=== PATIENT | female | born 1975 | race African-American/Black ===

== ENCOUNTER 2019-06-21 09:52 | Inpatient (IN) | payer OTHER, SELFPAY ==
--- NOTE | ~2019-06-21 | US_ITS ---
CORRECTED REPORT ORDER # ADDED 06/22/19 PK EXAMINATION: US percutaneous drain w cath DATE: 06/21/2019 15:56 INDICATION: Post hysterectomy abscess drainage with pain and loculated fluid collections along the incision site of prior outside CT. TECHNIQUE: The procedure including the risks and benefits was discussed with the patient. Risks discussed included bleeding and allergic reaction and infection. The patient understood the risks and benefits and agreed to proceed. The patient was confirmed to be receiving appropriate antibiotic coverage. The skin overlying the anterior lower pelvis was prepped and draped in usual sterile fashion. Anesthetic was administered with 1% lidocaine subcutaneously. Utilizing ultrasound guidance and 8.5 Fr catheter was inserted into at least 5 x 2.2 cm complex hypoechoic fluid collection in the subcutaneous tissues along the caudal margin of the left side of the section wound by trocar technique. The metal stiffener and trocar needle were removed, and the pigtail tip was locked. Approximately 4 mL dark reddish fluid was aspirated and sent to lab for Gram stain and culture. Utilizing ultrasound guidance and 8.5 Fr catheter was inserted into a second deeper 4.8 x 2.3 x 2.4 cm complex hypoechoic fluid collection in the in the anterior abdominal wall musculature more medial and slightly cephalad to the section wound by trocar technique. The metal stiffener and trocar needle were removed, and the pigtail tip was locked. Both catheters were stitched to the skin with suture. Antibiotic ointment and sterile dressings applied. Approximately 5 mL of slightly more serosanguineous sales audit clerk reddish fluid was aspirated and sent to lab for Gram stain and culture. Both catheters were connected to suction drainage. Attention was then turned to a third smaller 4.0 x 1.5 cm more complex appearing subcutaneous fluid collection significantly more internal echogenicity located caudal to the right side of the section wound. The site was prepped and draped in usual sterile fashion. Anesthetic was administered with 1% lidocaine subcutaneously. Utilizing ultrasound guidance an 18-gauge needle was advanced into the most hypoechoic portions of the fluid collection. Only a small amount of dark reddish fluid was able to be drained with the majority of the pocket filled with still relatively solid presumed clot and further drain catheter placement was deferred. A bandage was applied. There were no immediate complications. FINDINGS: Some images demonstrate 3 complex loculated fluid collections along the section wound. Subsequent images demonstrate drainage catheters positioned within 2 of the larger and more hypoechoic fluid collections as detailed above and aspiration needle within the third smaller more echogenic collection. Samples of bloody reddish fluid was aspirated from each collection for testing. IMPRESSION: 1. Successful ultrasound-guided drainage of 2 of 3 fluid collections and aspiration of the third fluid collection along the lower abdominal wall section wound most likely representing postoperative hematomas. Superimposed infection cannot be excluded and recommend correlation with pending Gram stain and cultures. 2. The catheter will be managed by Dr. Jansen. Reviewed, dictated and finalized at location A. ENT DRIVING INSTRUCTOR MTDD IMPRESSION: 1. Successful ultrasound-guided drainage of 2 of 3 fluid collections and aspira tion of the third fluid collection along the lower abdominal wall sect ion wound most likely representing postoperative hematomas. Superimposed infect ion cannot be excluded and recommend correlation with pending Gram stain and cu ltures. 2. The catheter will be managed by
--- NOTE | 2019-06-21 10:15 | ADMGEN ---
This patient, Dior Gordon, was admitted to 3 Medical Room 348-. Patient/family oriented to hospital policies and general routines including ID bracelet, bed and alarms, visiting hours, pain management, procedures, bathroom and other care routines, personal items, smoking policy, room service/diet, and visiting hours. Valuables list has been completed. Information on how to activate the Rapid Response Team has been discussed. Patient/Family are encouraged to report perceived risks to care and to ask questions if they do not understand what they are told or what they should do.
[2019-06-21 11:01] LABS: Mean Platelet Volume 9.5 fl (7.4-10.4); Platelet Count Result 485 k/mm3 (150-375)
[2019-06-21 11:07] LABS: INR 1.1; Prothrombin Time 13.7 Seconds (11.1-14.7)
[2019-06-21 11:08] LABS: Partial Thromboplastin Time 31.7 SECONDS (22.3-36.8)
[2019-06-21 11:42] VITALS: BMI 36.0
[2019-06-21] MEDS: levoFLOXacin 500 MG/D5W 100 ML 500 MG/100 ML BAG 100 MG IVPB (12:30)
[2019-06-21] MEDS: ESTRADIOL 7 DAY 0.1 MG PATCH TRANSDERM (13:32)
[2019-06-21 17:35] VITALS: BP 136/56; PULSE 78; RESP 16; TEMP 36.9; O2SAT 99
--- NOTE | 2019-06-21 17:46 | WPDCN ---
Assessment and Plan Assessment and plan (1) Type 2 diabetes mellitus: Code(s): E11.9 - Type 2 diabetes mellitus without complications Status: Acute Assessment and Plan: Recent hemoglobin A1c was 11.0. Patient reports that her glucose has not been over 200 since her recent surgery, and has not been using her insulin at home, only oral hypoglycemics. She does not wish to go back on insulin at this time. We did discuss that she needs to have good control of her glucose to promote wound healing. Initiate sliding scale insulin, Accu-Cheks, and hypoglycemic protocol. (2) Pelvic abscess: Status: Acute Assessment and Plan: Abscess status post hysterectomy. She has been started on levofloxacin and metronidazole per Dr. Jansen. Interventional Radiology has since placed a drain. (3) HTN (hypertension): Code(s): I10 - Essential (primary) hypertension Status: Chronic Assessment and Plan: Blood pressures are reasonable postoperatively. Continue antihypertensives and monitor daily. HPI Data of Consult Date/Time: 06/21/19 17:46 Requesting Physician: Darren Jansen MD Primary Care Provider: Brad Ortega MD Consult Narrative Narrative: Dior Gordon is a 43 year old female with type 2 diabetes mellitus, hypertension, and hyperlipidemia whom the hospitalist service has been consulted on for management of her diabetes. She is status post total abdominal hysterectomy with bilateral salpingo-oophorectomy for menorrhagia, fibroids, and ovarian cyst per Dr. Jansen on June 07, 2019. She was discharged home 3 days thereafter, and notes that she has continued to have pain at the incision site since. The pain is described as heavy and sticking in nature and seems to be located about the incision site. This morning, she was awakened from sleep with significant bleeding from an area of reported wound dehiscence and she was seen in the emergency department at [facility] in [place]. CT of the abdomen and pelvis reportedly showed 3 different abscesses, and she was transferred here for continuity of care. She is status post drain placement per interventional radiology. Currently she is eating dinner and continues to have some discomfort at the incision site. She had chills and sweats this morning, but no documented fever. She also had nausea and vomiting this morning, but that has since resolved. Regarding her diabetes, most recent hemoglobin A1c was 11.0. Prior to her surgery, she was taking Basaglar 45 units b.i.d. Since her surgery, however, her glucose has not been over 200 and she has stopped taking her insulin, and is only taking oral hypoglycemics. She has even had some low readings, as low as 75, which caused her mild hypoglycemic symptoms. She has not had blurry vision, polydipsia, or polyuria. Review of Systems Review of Systems: Narrative: Twelve systems were reviewed with pertinent positives and negatives as per HPI. No headache. No recent cold or flu-like symptoms. No chest pain or shortness of breath. She had a normal bowel movement today. No dysuria. No history of sleep apnea, but she suspects she may have it as she will occasionally have PND or feel not well rested when waking. He goes on to say that the symptoms have improved since her surgery, however. Except as documented, all other systems were reviewed and are negative. PMFSH Past Medical History Medical History (Updated 06/21/19 @ 23:51 by Melani Cortes PA-C) Anxiety Arthritis Chronic GERD Fibroids HTN (hypertension) Hypercholesterolemia Obesity Type 2 diabetes mellitus Surgi
[2019-06-21] MEDS: metroNIDAZOLE 500 MG/ISO 100ML 500 MG/100 ML BAG 100 MG IVPB (18:15)
[2019-06-21 22:00] VITALS: BP 153/73; PULSE 81; RESP 14; TEMP 36.4; O2SAT 100
[2019-06-21] MEDS: metFORMIN HCL 500 MG TABLET 1000 MG PO (23:06)
[2019-06-21 23:18] LABS: Glucose Point of Care 161 (65-105)
[2019-06-22] MEDS: ACETAMINOPHEN 325 MG TABLET 650 MG PO ×3 (00:06→21:31)
[2019-06-22] MEDS: metroNIDAZOLE 500 MG/ISO 100ML 500 MG/100 ML BAG 100 MG IVPB ×2 (05:37→18:01)
[2019-06-22] MEDS: glipiZIDE 5 MG TABLET 10 MG PO (05:38)
[2019-06-22 06:00] VITALS: BP 134/69; PULSE 74; RESP 14; TEMP 36.3; O2SAT 100
[2019-06-22 06:48] LABS: Basophils Percent Auto 0.3 % (0.2-1.2); Eosinophils Absolute Auto 0.1 K/mm3 (0-0.3); Eosinophils Percent Auto 1.5 % (0-4.4); Hematocrit 26.9 % (37.0-47.0); Immature Granulocyte Absolute 0.02 K/mm3 (0.00-0.031); Immature Granulocyte Percent A 0.3 % (0-0.5); Lymphocytes Absolute Auto 1.73 K/mm3 (0.9-3.2); Lymphocytes Percent Auto 25.6 % (18.3-44.2); Mean Corpuscular HGB Conc 29.7 g/dl (32-36); Mean Corpuscular Hemoglobin 25.7 pg (26-34); Mean Corpuscular Volume 86.5 fl (80-100); Mean Platelet Volume 9.6 fl (7.4-10.4); Monocytes Absolute Auto 0.6 K/mm3 (0.1-0.6); Monocytes Percent Auto 8.6 % (2.6-8.5); Neutrophils Absolute Auto 4.3 K/mm3 (1.3-6.7); Neutrophils Percent Auto 63.7 % (45.5-73.1); Nucleated Red Blood Cells Perc 0.3 % (0.0-0.2); Platelet Count Result 471 k/mm3 (150-375); Red Blood Count 3.11 M/mm3 (4.2-5.4); Red Cell Distribution Width 15.2 % (11.5-14.5); White Blood Count 6.8 K/mm3 (4.5-10.0)
[2019-06-22 07:02] LABS: Blood Urea Nitrogen 11 mg/dL (7-17); Calcium 9.2 mg/dL (8.4-10.2); Carbon Dioxide 28 mmol/L (22-30); Chloride 103 mmol/L (98-107); Estimated CRCL calculation 92 ml/min; Estimated Glomerular Filt Rate > 60; Glucose 201 mg/dL (65-105); Potassium 4.2 mmol/L (3.4-5.0); Sodium 140 mmol/L (137-145)
[2019-06-22 07:11] LABS: Anisocytosis 1+ (NORMAL); Hypochromasia 1+ (NORMAL); Platelet Estimate Adequate (Adequate)
--- NOTE | 2019-06-22 08:17 | PM.IMHP ---
H&P: HPI History of Present Illness Chief complaint: Post op abscess Narrative: Dior Gordon is a 43 year old female who presents for who abdominal pain and tenderness around incision sites. The patient has had persistent abdominal pain since the surgery. She is 2 weeks postop from a open hysterectomy. Her skin incision, she states is closed well. There are hard areas around the incision site that are very tender. She has not been feeling well. She has some malaise, elevated body temperature. She denies any abnormal vaginal discharge. She denies any nausea, vomiting, fever, chills. She denies any chest pain or shortness of breath. Review of Systems Constitutional: Constitutional: Reports no additional constitutional complaints, Denies fatigue, Denies headache(s), Denies lethargy and Denies weakness Eyes: Eyes: Reports no additional eye complaints, Denies blurry vision and Denies photophobia ENT: Reports as per HPI, Denies headache(s) and Denies neck pain Cardiovascular: Cardiovascular: Denies chest pain, Denies diaphoresis, Denies leg edema, Denies palpitations and Denies dyspnea Respiratory: Respiratory: Denies hemoptysis, Denies dyspnea and Denies wheezing Gastrointestinal: Gastrointestinal: Denies abdominal pain, Denies melena, Denies bloating, Denies hematochezia, Denies nausea and Denies vomiting Genitourinary: Genitourinary: Reports no additional female genitourinary complaints Musculoskeletal: Musculoskeletal: Denies joint swelling, Denies neck pain, Denies numbness and Denies stiffness Neurologic: Denies Abnormal speech present, Denies confusion, Denies headache(s), Denies numbness and Denies weakness Psychiatric: Psychiatric: Denies anxiety, Denies confusion, Denies depression, Denies homicidal ideation and Denies suicidal ideation Endocrine: Endocrine: Denies fatigue and Denies palpitations Allergic/Immunologic: Allergic/Immunologic: Denies wheezing PMFSH Past Medical History Medical History (Updated 06/22/19 @ 08:23 by Darren Jansen MD) Anxiety Arthritis Chronic GERD Fibroids HTN (hypertension) Hypercholesterolemia Obesity Type 2 diabetes mellitus Surgical History Surgical History (Updated 06/21/19 @ 17:50 by Melani Cortes PA-C) S/P total abdominal hysterectomy and bilateral salpingo-oophorectomy Family History Family History Father Malignant neoplasm of prostate Hypertension Mother Diabetes mellitus Hypertension Sibling Hypertension Social History Social History (Updated 06/21/19 @ 23:47 by Melani Cortes PA-C) Social History: The patient lives alone in [place]. She works at a local [employer]. She has no children. Her primary care provider is Dr. Brad Ortega. She designates her sister Jessee as her emergency contact. She is a full code. Smoking status: Never smoker Alcohol intake: never Substance use: never Gender identity (if verbalized by the patient): Female Spiritual care concerns: No Agree to blood products: Yes Meds Home Medications and Allergies Home Medications Medication Instructions Recorded Confirmed Type alogliptin 25 mg PO DAILY 06/01/19 06/21/19 History atorvastatin 10 mg PO DAILY 06/01/19 06/21/19 History escitalopram oxalate 10 mg PO DAILY 06/01/19 06/21/19 History fenofibrate 54 mg PO DAILY 06/01/19 06/21/19 History glipizide 10 mg PO DAILY 06/01/19 06/21/19 History lisinopril 50 mg PO DAILY 06/01/19 06/21/19 History metformin 1,000 mg PO BID 06/01/19 06/21/19 History metoprolol succinate 25 mg PO DAILY 06/01/19 06/21/19 History ondansetron 8 mg PO Q8H PRN #10 tablet 06/11/19 06/21/19 Rx ferrous sulfate 325 mg PO BID 06/21/19 06/21/19 History ibuprofen 800 mg PO Q6H 06/21/19 06/21/19 History Allergies Allergy/AdvReac Type Severity Reaction Status Date / Time latex Allergy Unknown Rash Verified 06/07/19 08:02 Vital Signs Vital Signs - 24 hr 1
[2019-06-22 08:19] LABS: Hemoglobin A1C 10.6 % (<5.7)
[2019-06-22 09:15] VITALS: PULSE 74; RESP 14; O2SAT 100
[2019-06-22] MEDS: FERROUS SULFATE 324 MG TABLET PO ×2 (09:16→18:05)
[2019-06-22] MEDS: LISINOPRIL 10 MG TABLET 50 MG PO (09:16)
[2019-06-22] MEDS: metFORMIN HCL 500 MG TABLET 1000 MG PO ×2 (09:17→21:32)
[2019-06-22] MEDS: ATORVASTATIN 10 MG TABLET PO (09:17)
[2019-06-22 09:18] VITALS: PULSE 74
[2019-06-22] MEDS: ESCITALOPRAM OXALATE 10 MG TABLET PO (09:18)
[2019-06-22] MEDS: METOPROLOL SUCCINATE EXT REL 25 MG TABCR PO (09:18)
[2019-06-22 09:36] LABS: Glucose Point of Care 205 (65-105)
[2019-06-22] MEDS: levoFLOXacin 500 MG/D5W 100 ML 500 MG/100 ML BAG 100 MG IVPB (13:13)
[2019-06-22 13:22] LABS: Glucose Point of Care 201 (65-105)
[2019-06-22 14:00] VITALS: BP 128/84; PULSE 78; RESP 22; TEMP 36.2; O2SAT 100
[2019-06-22 15:11] LABS: Glucose Point of Care 179 (65-105)
--- NOTE | 2019-06-22 15:31 | PM.IMPN ---
Progress Note: A&P Assessment and Plan (1) Type 2 diabetes mellitus: Code(s): E11.9 - Type 2 diabetes mellitus without complications Status: Acute Assessment and Plan: Med dose sliding scales present time. Patient reluctant to take any long-acting insulin. Obviously not well controlled with her sugars when arriving here and with the A1c that high. She will follow up with her primary on discharge. Hopefully sugars will be controlled will not to show healing of the wound (2) Pelvic abscess: Status: Acute Assessment and Plan: Drain per Interventional Radiology. Continue IV antibiotics per Dr. hunter (3) HTN (hypertension): Code(s): I10 - Essential (primary) hypertension Status: Chronic Assessment and Plan: Pressure well controlled with SUN-inhibitor beta-syed continue the same (4) Anemia: Code(s): D64.9 - Anemia, unspecified Status: Acute Assessment and Plan: Hemoglobin has drifted down slowly postop in with inflammation from the infection. Continue to monitor Subjective Interval history: Date of visit 06/22. 43-year-old hypertensive type 2 diabetic black female admitted with pelvic abscess post hysterectomy. We are seeing her for diabetes. She states that her sugars have been doing well and she stopped her insulin at home. A1c is above 10. Feels better this a.m. and we stress importance of controlling her blood sugar Exam Narrative: Exam Narrative: Blood pressure 134/70 pulse 76 afebrile Pupils equal reactive to light sclera anicteric Mouth normal Lungs clear CV regular rate rhythm Abdomen is soft nontender no real masses Extremities without edema dorsalis pedis posterior tibial 1+ symmetrical Neuro alert pleasant cooperative no focal deficits Objective Data Vital Signs Vital Signs: Vital Signs - 24 hr 06/21/19 17:35 06/21/19 22:00 06/22/19 06:00 Temperature 36.9 C 36.4 C 36.3 C L Pulse Rate 78 81 74 Respiratory Rate 16 14 14 Blood Pressure 136/56 L 153/73 H 134/69 Pulse Oximetry 99 100 100 06/22/19 09:15 06/22/19 09:18 06/22/19 14:00 Temperature 36.2 C L Pulse Rate 74 74 78 Respiratory Rate 14 22 H Blood Pressure 128/84 Pulse Oximetry 100 100 Intake/Output Intake/Output: Intake & Output 06/19/19 06/20/19 06/21/19 06/22/19 23:59 23:59 23:59 23:59 Intake Total 400 980 Output Total 813 Balance -413 980 Meds/Results Medications: Active Medications Generic Name Dose Route Start Last Admin Trade Name Freq PRN Reason Stop Dose Admin Acetaminophen 650 mg 06/21/19 23:52 06/22/19 05:37 Tylenol Tablet PO 650 mg Q6H PRN Administration Mild Pain (1-3) or Fever Hydrocodone Bitart/Acetaminophen 1 tab 06/21/19 20:44 [place] 5-325 Mg PO Q4H PRN Pain Rated 4-6 Atorvastatin Calcium 10 mg 06/22/19 09:00 06/22/19 09:17 Lipitor PO 10 mg DAILY ONI Administration Dextrose 12.5 gm 06/21/19 21:17 Dextrose 50% Syringe IV PUSH PRN PRN Hypoglycemia Protocol Escitalopram Oxalate 10 mg 06/22/19 09:00 06/22/19 09:18 Lexapro PO 10 mg DAILY ONI Administration Estradiol 0.1 mg 06/21/19 11:50 06/21/19 13:32 [place] 7 Day TRANSDERM 0.1 mg We@0900 ONI Administration Fenofibrate 48 mg 06/22/19 21:00 Tricor PO HS ONI Ferrous Sulfate 324 mg 06/22/19 09:00 06/22/19 09:16 Ferrous Sulfate PO 324 mg BID ONI Administration Glucagon 1 mg 06/21/19 21:17 Glucagon For Inj IM PRN PRN Hypoglycemia Protocol Glucose 15 gm 06/21/19 21:17 Glutose 15 PO PRN PRN Hypoglycemia Protocol Levofloxacin/Dextrose 500 mg in 100 mls @ 100 mls/hr 06/21/19 12:00 06/22/19 14:18 Levaquin 500 Mg/D5w 100 Ml IVPB Infused Q24H ONI Infusion Metronidazole 500 mg in 100 mls @ 100 mls/hr 06/21/19 18:00 06/22/19 06:37 Flagyl 500 Mg/Iso Soln 100 Ml IVPB Infused Q12H ONI Infusion Dextrose 1,00
[2019-06-22 18:29] LABS: Glucose Point of Care 202 (65-105)
[2019-06-22] MEDS: FENOFIBRATE,MICRONIZED 48 MG TABLET PO (21:32)
[2019-06-22 21:52] LABS: Glucose Point of Care 186 (65-105)
[2019-06-22 22:31] VITALS: BP 165/79; PULSE 78; RESP 16; TEMP 36.7; O2SAT 92
[2019-06-23] MEDS: metroNIDAZOLE 500 MG/ISO 100ML 500 MG/100 ML BAG 100 MG IVPB (05:42)
[2019-06-23 05:56] VITALS: BP 129/74; PULSE 71; RESP 16; TEMP 36; O2SAT 92
[2019-06-23 06:36] VITALS: BP 129/74; PULSE 71; RESP 16; TEMP 36; O2SAT 92
[2019-06-23 06:38] LABS: Blood Urea Nitrogen 10 mg/dL (7-17); Calcium 9.2 mg/dL (8.4-10.2); Carbon Dioxide 26 mmol/L (22-30); Chloride 100 mmol/L (98-107); Estimated CRCL calculation 106 ml/min; Estimated Glomerular Filt Rate > 60; Glucose 180 mg/dL (65-105); Potassium 4.2 mmol/L (3.4-5.0); Sodium 139 mmol/L (137-145)
--- NOTE | 2019-06-23 08:59 | PM.GYNPNOP ---
GRAIN GRADER - A/P Assessment and plan (1) Post-operative wound abscess: Code(s): T81.49XA - Infection following a procedure, other surgical site, initial encounter Status: Acute Assessment and Plan: This patient is a 43-year-old female who is postop day 9 from a total abdominal hysterectomy. She has subcutaneous wound abscesses. These abscesses were treated with drain placement and antibiotics. She is to be discharged. She is stable and improving. She will continue oral antibiotics and follow up in 4 days. The drains will be re-evaluated next week. Time Spent With Patient Time: Total time spent is greater than 50% in coordination of care (as documented) at patient's floor/unit and/or counseling patient: Time with patient: 15 - 25 minutes GRAIN GRADER- PN:Subj Post-Op Subjective Subjective: patient reports feeling better, patient has no complaints, patient desires discharge, pain is well controlled and patient is tolerating oral intake Exam Const: General: healthy appearing, comfortable and no acute distress Resp: Auscultation: clear to auscultation bilaterally, no rales, no rhonchi and no wheezes Cardio: Rate: regular rate Heart sounds: no click, no murmurs and no rubs GI: Inspection: non-distended GI Palp: No abdominal tenderness Auscultation: normal bowel sounds Other: Improved pain induration at the minor-incisional areas. Drains were productive. Extrem: General: normal to inspection, no pedal edema and no calf tenderness GRAIN GRADER - PN: Obj Data Vital Signs Vital Signs: Vital Signs - 24 hr 06/22/19 09:15 06/22/19 09:18 06/22/19 14:00 Temperature 97.2 F L Pulse Rate 74 74 78 Respiratory Rate 14 22 H Blood Pressure 128/84 Pulse Oximetry 100 100 06/22/19 22:31 06/23/19 05:56 06/23/19 06:36 Temperature 98.0 F 96.8 F L 96.8 F L Pulse Rate 78 71 71 Respiratory Rate 16 16 16 Blood Pressure 165/79 H 129/74 129/74 Pulse Oximetry 92 92 92 Intake/Output Intake/Output: Intake & Output 06/20/19 06/21/19 06/22/19 06/23/19 23:59 23:59 23:59 23:59 Intake Total 400 1870 400 Output Total 813 1200 1200 Balance -413 670 -800 Meds/Results Medications: Active Medications Generic Name Dose Route Start Last Admin Trade Name Freq PRN Reason Stop Dose Admin Acetaminophen 650 mg 06/21/19 23:52 06/22/19 21:31 Tylenol Tablet PO 650 mg Q6H PRN Administration Mild Pain (1-3) or Fever Hydrocodone Bitart/Acetaminophen 1 tab 06/21/19 20:44 [place] 5-325 Mg PO Q4H PRN Pain Rated 4-6 Atorvastatin Calcium 10 mg 06/22/19 09:00 06/22/19 09:17 Lipitor PO 10 mg DAILY ONI Administration Dextrose 12.5 gm 06/21/19 21:17 Dextrose 50% Syringe IV PUSH PRN PRN Hypoglycemia Protocol Escitalopram Oxalate 10 mg 06/22/19 09:00 06/22/19 09:18 Lexapro PO 10 mg DAILY ONI Administration Estradiol 0.1 mg 06/21/19 11:50 06/21/19 13:32 [place] 7 Day TRANSDERM 0.1 mg We@0900 ONI Administration Fenofibrate 48 mg 06/22/19 21:00 06/22/19 21:32 Tricor PO 48 mg HS ONI Administration Ferrous Sulfate 324 mg 06/22/19 09:00 06/22/19 18:05 Ferrous Sulfate PO 324 mg BID ONI Administration Glucagon 1 mg 06/21/19 21:17 Glucagon For Inj IM PRN PRN Hypoglycemia Protocol Glucose 15 gm 06/21/19 21:17 Glutose 15 PO PRN PRN Hypoglycemia Protocol Levofloxacin/Dextrose 500 mg in 100 mls @ 100 mls/hr 06/21/19 12:00 06/22/19 14:18 Levaquin 500 Mg/D5w 100 Ml IVPB Infused Q24H ONI Infusion Metronidazole 500 mg in 100 mls @ 100 mls/hr 06/21/19 18:00 06/23/19 06:50 Flagyl 500 Mg/Iso Soln 100 Ml IVPB Infused Q12H ONI Infusion Dextrose 1,000 mls @ 100 mls/hr 06/21/19 21:17 Dextrose 5% 1,000 Ml IVPB PRN PRN Hypoglycemia Protocol Ibuprofen 800 mg 06/22/19 00:01 Motrin PO Q6H PRN Pain 1-3, IF APAP INEFFECTIVE Insulin Aspart 4 - 8 units
[2019-06-23 09:19] VITALS: PULSE 72
[2019-06-23] MEDS: metFORMIN HCL 500 MG TABLET 1000 MG PO (09:19)
[2019-06-23] MEDS: ATORVASTATIN 10 MG TABLET PO (09:19)
[2019-06-23] MEDS: METOPROLOL SUCCINATE EXT REL 25 MG TABCR PO (09:19)
[2019-06-23] MEDS: FERROUS SULFATE 324 MG TABLET PO (09:19)
[2019-06-23 09:20] VITALS: PULSE 76; RESP 16; O2SAT 92
[2019-06-23] MEDS: PROMETHAZINE HCL 25 MG TABLET PO (09:20)
[2019-06-23] MEDS: ESCITALOPRAM OXALATE 10 MG TABLET PO (09:20)
[2019-06-23] MEDS: LISINOPRIL 10 MG TABLET 50 MG PO (09:22)
[2019-06-23 09:35] LABS: Glucose Point of Care 197 (65-105)
[2019-06-23] MEDS: levoFLOXacin 500 MG/D5W 100 ML 500 MG/100 ML BAG 100 MG IVPB (11:18)
--- NOTE | 2019-06-23 12:26 | PM.IMPN ---
Progress Note: A&P Assessment and Plan (1) Type 2 diabetes mellitus: Code(s): E11.9 - Type 2 diabetes mellitus without complications Status: Acute Assessment and Plan: Med dose sliding scales present time. Patient reluctant to take any long-acting insulin. Obviously not well controlled with her sugars when arriving here and with the A1c that high. She will follow up with her primary on discharge in about 2 weeks Hopefully sugars will be controlled will not slow healing of the wound (2) Pelvic abscess: Status: Acute Assessment and Plan: Drain per Interventional Radiology. Continue IV antibiotics per Dr. hunter Plan is home today with drain on oral antibiotic and return to see Dr Hunter 4-5 days (3) HTN (hypertension): Code(s): I10 - Essential (primary) hypertension Status: Chronic Assessment and Plan: Pressure well controlled with SUN-inhibitor beta-syed continue the same (4) Anemia: Code(s): D64.9 - Anemia, unspecified Status: Acute Assessment and Plan: Hemoglobin has drifted down slowly postop in with inflammation from the infection. Continue to monitor Subjective Interval history: Date of visit 06/23. 43-year-old hypertensive type 2 diabetic black female admitted with pelvic abscess post hysterectomy. We are seeing her for diabetes. She states that her sugars have been doing well and she stopped her insulin at home. A1c is above 10. Feels better this a.m. and we stress importance of controlling her blood sugar Exam Narrative: Exam Narrative: Blood pressure 130/74 pulse 72 afebrile Pupils equal reactive to light sclera anicteric Mouth normal Lungs clear CV regular rate rhythm Abdomen is soft nontender no real masses, drain still in place Extremities without edema dorsalis pedis posterior tibial 1+ symmetrical Neuro alert pleasant cooperative no focal deficits Objective Data Vital Signs Vital Signs: Vital Signs - 24 hr 06/22/19 14:00 06/22/19 22:31 06/23/19 05:56 Temperature 36.2 C L 36.7 C 36.0 C L Pulse Rate 78 78 71 Respiratory Rate 22 H 16 16 Blood Pressure 128/84 165/79 H 129/74 Pulse Oximetry 100 92 92 06/23/19 06:36 06/23/19 09:19 06/23/19 09:20 Temperature 36.0 C L Pulse Rate 71 72 76 Respiratory Rate 16 16 Blood Pressure 129/74 Pulse Oximetry 92 92 Intake/Output Intake/Output: Intake & Output 06/20/19 06/21/19 06/22/19 06/23/19 23:59 23:59 23:59 23:59 Intake Total 400 1870 740 Output Total 813 1200 1200 Balance -413 216 -238 Meds/Results Medications: Active Medications Generic Name Dose Route Start Last Admin Trade Name Freq PRN Reason Stop Dose Admin Acetaminophen 650 mg 06/21/19 23:52 06/22/19 21:31 Tylenol Tablet PO 650 mg Q6H PRN Administration Mild Pain (1-3) or Fever Hydrocodone Bitart/Acetaminophen 1 tab 06/21/19 20:44 [place] 5-325 Mg PO Q4H PRN Pain Rated 4-6 Atorvastatin Calcium 10 mg 06/22/19 09:00 06/23/19 09:19 Lipitor PO 10 mg DAILY ONI Administration Dextrose 12.5 gm 06/21/19 21:17 Dextrose 50% Syringe IV PUSH PRN PRN Hypoglycemia Protocol Escitalopram Oxalate 10 mg 06/22/19 09:00 06/23/19 09:20 Lexapro PO 10 mg DAILY ONI Administration Estradiol 0.1 mg 06/21/19 11:50 06/21/19 13:32 [place] 7 Day TRANSDERM 0.1 mg We@0900 ONI Administration Fenofibrate 48 mg 06/22/19 21:00 06/22/19 21:32 Tricor PO 48 mg HS ONI Administration Ferrous Sulfate 324 mg 06/22/19 09:00 06/23/19 09:19 Ferrous Sulfate PO 324 mg BID ONI Administration Glucagon 1 mg 06/21/19 21:17 Glucagon For Inj IM PRN PRN Hypoglycemia Protocol Glucose 15 gm 06/21/19 21:17 Glutose 15 PO PRN PRN Hypoglycemia Protocol Levofloxacin/Dextrose 500 mg in 100 mls @ 100 mls/hr 06/21/19 12:00 06/23/19 12:25 Levaquin 500 Mg/D5w 100 Ml IVPB Infused Q24H ONI Infus
== END 2019-06-23 14:35 | disposition home or self-care (01) | DRG 721 ==
PROVIDERS: Internal Medicine; Physician Assistant; Admitting Provider Obstetrics & Gynecology; PCP Family Medicine; Visit Provider Obstetrics & Gynecology
DX: T81.41XA Infection following a procedure, superficial incisional surgical site, initial encounter (principal); N73.8 Other specified female pelvic inflammatory diseases; E11.9 Type 2 diabetes mellitus without complications; E66.9 Obesity, unspecified; Z68.36 Body mass index [BMI] 36.0-36.9, adult; D64.9 Anemia, unspecified; F41.9 Anxiety disorder, unspecified; E78.00 Pure hypercholesterolemia, unspecified; M19.90 Unspecified osteoarthritis, unspecified site; K21.9 Gastro-esophageal reflux disease without esophagitis; I10 Essential (primary) hypertension; D21.9 Benign neoplasm of connective and other soft tissue, unspecified; Z90.710 Acquired absence of both cervix and uterus; Z90.722 Acquired absence of ovaries, bilateral
CPT/HCPCS: 36415; 75989; 76942; 80048; 83036; 85025; 85049; 85610; 85730; 87070; 87075; 87205; A9270; J1956

== ENCOUNTER 2019-07-13 14:40 | Inpatient (IN) | payer OTHER, SELFPAY ==
--- NOTE | ~2019-07-13 | CT_ITS ---
EXAMINATION: CT abdomen pelvis w con DATE: 07/13/2019 17:15 INDICATION: Abdomen pain. Length over second incision line from hysterectomy performed 06/07/2019. Hi story of abscess from surgery. TECHNIQUE: Computed tomography (CT) of the abdomen and pelvis was performed with 100 cc Omnipaque 350 intravenous contrast. The dose-length product was 874.10 mGy-cm. Automated exposure control and iter ative reconstruction technique were employed. COMPARISON: CT dated 06/21/2019 FINDINGS: Lung bases are unremarkable. Heart size is normal. No significant vascular abnormality. No evidence for aneurysm. There are mildly prominent external iliac lymph nodes bilaterally, likely reac tive. The liver, spleen, pancreas, adrenal glands and kidneys are unremarkable. Possible gallstones. Recomm end confirmation with ultrasound as clinically indicated. Bowel pattern is nonobstructive. Normal reynold endix. There is complex thickening of the lower anterior abdominal wall with a few small areas of loculated fluid. One discrete area contains fluid and gas measuring approximately 3.2 x 1.3 cm. There is fluid along the posterior margin of the lower anterior abdominal wall. Small amount of fluid in the pelvis. No intra-abdominal abscess is identified. Bladder wall thickening. There is infiltration of the minor umbilical fat. No acute osseous abnormality. Uterus is surgically absent. IMPRESSION: 1. Complex thickening of the lower anterior abdominal wall with areas of loculated fluid and fluid wi th gas, consistent with residual abscess, although significantly improved compared with 06/21/2019. 2: Thickening of the bladder wall, possibly due to underdistention, although cystitis is not exclude d. 3: Mildly prominent external iliac lymph nodes, likely reactive. Reviewed, dictated and finalized at location A. RUMENT FITTER IMPRESSION: 1. Complex thickening of the lower anterior abdominal wall with areas of locula frances fluid and fluid with gas, consistent with residual abscess, although signif icantly improved compared with 06/21/2019. 2: Thickening of the bladder wall, possibly due to underdistention, although c ystitis is not excluded. 3: Mildly prominent external iliac lymph nodes, likely reactive.
--- NOTE | ~2019-07-13 | XR_ITS ---
EXAMINATION: XR chest 2V DATE: 07/18/2019 10:45 INDICATION: Hypoxia. TECHNIQUE: Frontal and lateral views of the chest were obtained. COMPARISON: Chest single view 06/24/2017, chest CT 07/17/2019 FINDINGS: There are airspace opacities in the perihilar regions bilaterally, right worse than left. N o pleural effusion or pneumothorax. The heart size is normal. IMPRESSION: 1. Airspace opacities in the perihilar regions, right worse than left, consistent with pulmonary jesus alberto a versus pneumonia. Reviewed, dictated and finalized at location A. NG INSTRUCTOR IMPRESSION: 1. Airspace opacities in the perihilar regions, right worse than left, consiste nt with pulmonary edema versus pneumonia.
--- NOTE | ~2019-07-13 | CT_ITS ---
EXAMINATION: CTA chest PE protocol EXAM DATE: 07/17/2019 15:57 INDICATION: Shortness of breath, hypoxia. TECHNIQUE: Spiral CTA of the chest (pulmonary arteries) was performed with 100 cc Omnipaque 350 intr avenous contrast injection. Images were acquired during the pulmonary arterial phase. Coronal maxi mum intensity projection 3D-reconstructions were created by the technologist on dedicated workstation . Axial, coronal and sagittal reformatted images were reviewed. The dose-length product (DLP) for t his examination was 651.19 mGy-cm. The exposure was tailored according to patient size (auto mA exp osure control), and iterative reconstruction (ASIR) was used as additional dose reduction technique. Correlation is made to chest x-ray 06/24/2017 year.. FINDINGS: Pulmonary arteries are well opacified and without intraluminal filling defects. No thora cic aortic dissection. There is rather extensive right perihilar, small to moderate amount of left p erihilar groundglass airspace disease, could be asymmetric fluid overload/pulmonary edema or pneumoni a. There is small right pleural effusion. Tracheobronchial tree is patent. There is no mediastina l, hilar or axillary lymphadenopathy. There is no pneumothorax. Heart normal in size. There is mild coronary arterial calcification, arterial sclerosis. Upper abdomen is unremarkable. There is thoracic spondylosis without osteoblastic or osteolytic lesions identified. IMPRESSION: 1. Rather extensive right, smaller left perihilar groundglass edema/fluid overload or pneumonia. Cli nical correlation. 2. Small right pleural effusion. Reviewed, dictated and finalized at location A. ER PUNCHER IMPRESSION: 1. Rather extensive right, smaller left perihilar groundglass edema/fluid over load or pneumonia. Clinical correlation. 2. Small right pleural effusion.
--- NOTE | ~2019-07-13 | CT_ITS ---
EXAMINATION: CT abd pelvis lumbar wo con DATE: 07/16/2019 19:09 INDICATION: Postop wound abscess TECHNIQUE: Computed tomography (CT) of the abdomen, pelvis and lumbar spine was performed without int ravenous contrast. The dose-length product was 1141.32 mGy-cm. COMPARISON: CT dated 07/13/2019 FINDINGS: Abdomen/pelvis: Lung bases unremarkable. Heart size normal. Small left pleural effusion. The liver, s pleen, pancreas, adrenal glands and kidneys are unremarkable. Gallbladder is present. Nonobstructive bowel gas pattern. Persistent complex thickening of the lower anterior abdominal wall with areas of l oculated gas. Abscess cannot be evaluated without contrast. Subcutaneous gas noted in the right lower abdominal wall. There is thickening of the bladder. Small a mount of free fluid in the pelvis, not significantly changed from prior examination. There are bilate ral inguinal lymph nodes, likely reactive. Lumbar spine: No fracture, subluxation or dislocation. No significant spinal stenosis. Vertebral body heights are maintained. IMPRESSION: 1. New focal area of subcutaneous gas right lower anterior abdominal wall in the area of surgical inc ision. Otherwise, no significant change to complex thickening of the lower anterior abdominal wall in the region of previous surgery, allowing for lack of IV contrast. 2: Mild bladder wall thickening. Small amount of free fluid in the pelvis. Consider cystitis. 3: No significant abnormality of the lumbar spine. 4: Small left pleural effusion. Reviewed, dictated and finalized at location A. GAGE LOAN REVIEWER IMPRESSION: 1. New focal area of subcutaneous gas right lower anterior abdominal wall in th e area of surgical incision. Otherwise, no significant change to complex thicke dano of the lower anterior abdominal wall in the region of previous surgery, al lowing for lack of IV contrast. 2: Mild bladder wall thickening. Small amount of free fluid in the pelvis. 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 3: No significant abnormality of the lumbar spine. 4: Small left pleural effusion.
--- NOTE | ~2019-07-13 | US_ITS ---
EXAMINATION: US right upper quadrant DATE: 07/14/2019 08:27 INDICATION: Right upper quadrant abdominal pain. TECHNIQUE: Multiple grayscale and Doppler ultrasound images of the abdomen were obtained. COMPARISON: CT abdomen and pelvis 07/13/2019 FINDINGS: The visualized portions of the head and body of the pancreas are normal. There is diffuse h epatic steatosis. There is normal flow in main portal vein. The gallbladder is normal in size. No gal lstones or gallbladder wall thickening. There was no sonographic Littlejohn sign. The common duct is norm al and measures 4 mm. IMPRESSION: 1. Diffuse hepatic steatosis. Reviewed, dictated and finalized at location A. CTOR INSTITUTION
[2019-07-13 14:47] VITALS: BP 116/68; PULSE 83; RESP 16; TEMP 36.2; O2SAT 100
[2019-07-13 15:22] LABS: Basophils Percent Auto 0.8 % (0.2-1.2); Eosinophils Absolute Auto 0.2 K/mm3 (0-0.3); Eosinophils Percent Auto 3.3 % (0-4.4); Hematocrit 35.4 % (37.0-47.0); Hemoglobin 10.6 g/dL (12.0-15.0); Immature Granulocyte Absolute 0.02 K/mm3 (0.00-0.031); Immature Granulocyte Percent A 0.4 % (0-0.5); Lymphocytes Absolute Auto 1.79 K/mm3 (0.9-3.2); Lymphocytes Percent Auto 34.6 % (18.3-44.2); Mean Corpuscular HGB Conc 29.9 g/dl (32-36); Mean Corpuscular Hemoglobin 25.2 pg (26-34); Mean Corpuscular Volume 84.3 fl (80-100); Mean Platelet Volume 10.2 fl (7.4-10.4); Monocytes Absolute Auto 0.3 K/mm3 (0.1-0.6); Monocytes Percent Auto 5.4 % (2.6-8.5); Neutrophils Absolute Auto 2.9 K/mm3 (1.3-6.7); Neutrophils Percent Auto 55.5 % (45.5-73.1); Platelet Count Result 329 k/mm3 (150-375); Red Cell Distribution Width 15.6 % (11.5-14.5); White Blood Count 5.2 K/mm3 (4.5-10.0)
[2019-07-13 15:34] LABS: Alanine Aminotransferase 12 U/L (4-35); Albumin Level 4.5 g/dL (3.5-5.1); Alkaline Phosphatase 65 U/L (38-126); Aspartate Amino Transferase 18 U/L (14-36); Bilirubin,Total 0.2 mg/dL (0.2-1.3); Blood Urea Nitrogen 15 mg/dL (7-17); Calcium 9.9 mg/dL (8.4-10.2); Carbon Dioxide 26 mmol/L (22-30); Chloride 96 mmol/L (98-107); Estimated CRCL calculation 79 ml/min; Estimated Glomerular Filt Rate > 60; Glucose 302 mg/dL (65-105); Lipase 1212 U/L (23-300); Potassium 4.8 mmol/L (3.4-5.0); Sodium 136 mmol/L (137-145)
[2019-07-13 15:42] LABS: Hypochromasia 1+ (NORMAL); Platelet Estimate Adequate (Adequate)
[2019-07-13 15:43] LABS: Anisocytosis 2+ (NORMAL)
--- NOTE | 2019-07-13 16:04 | PC.NURSE ---
Patient taken to bathroom while on the way to her room at this time.
[2019-07-13 16:19] VITALS: BP 123/72; PULSE 86; RESP 18; TEMP 36.1; O2SAT 100
[2019-07-13 16:33] LABS: Add Urine Microscopic? YES; Appearance Urine Cloudy (Clear); Bacteria Urine Trace /hpf; Bilirubin Urine Negative (Negative); Blood Urine 1+ (Negative); Color Urine Yellow (Yellow); Glucose Urine UA 3+ mg/dL (Negative); Ketones Urine Negative (Negative); Leukocyte Esterase Ur 3+ LEU/UL (Negative); Mucus Urine Rare /lpf; Nitrate Urine Negative (Negative); Protein Urine Negative (Negative); Specific Grav Ur 1.027 (1.001-1.035); Squamous Epithelial Cell Urine Many /hpf (Few); Urobilinogen Urine Negative mg/dL (<2.0); WBC Urine 51-75 /hpf
--- NOTE | 2019-07-13 16:45 | ED.GENADULT ---
HPI - General Adult General Chief complaint: Abdominal Pain Stated complaint: pain to incision Time Seen by Provider: 07/13/19 16:42 Source: patient and RN notes reviewed Mode of arrival: ambulatory Limitations: no limitations History of Present Illness HPI narrative: A 43 y/o female presents to the ED the with constant, worsening, RLQ ABD pain. She states that she had a complete hysterectomy done by Dr. Jansen (DOG TRAINER) on 06/07/19, but has been back to the ED 3 times for complications. She reports that a couple weeks ago she came to the ED and they found 3 abscess pockets in her ABD, so she had 2 drains placed and was told that the last one was too small to get a drain . She notes that the pain that she is now having is at the same spot as the last abscess. She also notes associated N/V, lightheadedness, chills, sweats, and subjective fevers. She denies any CP, SOB, diarrhea, or PATEL. MD complaint: RLQ ABD pain Location: abdomen (RLQ) Pain Consistency: constant Associated symptoms: diaphoresis, fever/chills (subjective), nausea/vomiting and other (lightheadedness) Related Data Home Medications Medication Instructions Recorded Confirmed alogliptin 25 mg PO DAILY 06/01/19 07/13/19 atorvastatin 10 mg PO DAILY 06/01/19 07/13/19 escitalopram oxalate 10 mg PO DAILY 06/01/19 07/13/19 fenofibrate 54 mg PO DAILY 06/01/19 07/13/19 glipizide 10 mg PO DAILY 06/01/19 07/13/19 lisinopril 40 mg PO DAILY 06/01/19 07/13/19 metformin 1,000 mg PO BID 06/01/19 07/13/19 metoprolol succinate 50 mg PO DAILY 06/01/19 07/13/19 ferrous sulfate 325 mg PO BID 06/21/19 07/13/19 ibuprofen 800 mg PO Q6H 06/21/19 07/13/19 Allergies Allergy/AdvReac Type Severity Reaction Status Date / Time latex Allergy Unknown Rash Verified 06/07/19 08:02 Review of Systems Review of Systems: All systems reviewed & are unremarkable except as noted in HPI and below Constitutional: Constitutional: Reports chills, Reports fever(s) (subjective) and Reports other (sweats) Cardiovascular: Cardiovascular: Denies chest pain and Reports lightheadedness Respiratory: Respiratory: Denies dyspnea Gastrointestinal: Gastrointestinal: Reports abdominal pain (RLQ), Denies diarrhea, Reports nausea and Reports vomiting Neurologic: Denies headache(s) [facility] Past Medical History Medical History (Updated 07/13/19 @ 22:09 by Marie Marcos MD) Anxiety Arthritis Chronic GERD Fibroids HTN (hypertension) Hypercholesterolemia Obesity Type 2 diabetes mellitus Surgical History Surgical History (Updated 06/21/19 @ 17:50 by Melani Cortes PA-C) S/P total abdominal hysterectomy and bilateral salpingo-oophorectomy Social History Social History (Updated 06/21/19 @ 23:47 by Melani Cortes PA-C) Social History: The patient lives alone in [place]. She works at a local [employer]. She has no children. Her primary care provider is Dr. Brad Ortega. She designates her sister Jessee as her emergency contact. She is a full code. Smoking status: Never smoker Alcohol intake: never Substance use: never Gender identity (if verbalized by the patient): Female Spiritual care concerns: No Agree to blood products: Yes Comments PCP: Dr. Ortega. DOG TRAINER: Dr. Jansen. Exam Const: General: cooperative, no acute distress and alert Nutritional Appearance: well nourished Orientation/consciousness: oriented x3 Limitations: no limitations HENMT: Mouth: Yes lip normal and Yes moist mucous membranes Resp: Effort & Inspection: normal respiratory effort Auscultation: clear to auscultation bilaterally Cardio: Rate: regular rate Rhythm: regular rhythm GI: Inspection: incision (lower suprapubic region) and other (RLQ purulent looing) GI Palp: Yes abdominal tenderness (diffuse worse in RLQ) and Yes firm Auscultation: normal bowel sounds Skin: General skin exam: normal color Neuro: General: oriented x3 Cognition (Neuro): normal cognition Speech: normal speech Ex
[2019-07-13] MEDS: LACTATED RINGERS 1,000 ML 999 ML IV CONT (17:16)
--- NOTE | 2019-07-13 18:15 | PM.IMHP ---
H&P: HPI History of Present Illness Chief complaint: Abdominal pain. Narrative: Dior Gordon is a 43 year old female with poorly controlled type 2 diabetes mellitus, GERD, hypertension, and hyperlipidemia who presented to the emergency department earlier this afternoon from home for evaluation of abdominal pain. She is known to myself and the hospitalist service as we saw her in consult on June 21, 2019 after she was admitted for further treatment of a pelvic abscess status post hysterectomy. Drains were placed per Interventional Radiology and she was discharged home on oral antibiotics. It sounds as though she was taking levofloxacin and metronidazole, however stopped metronidazole due to side effects. She continues to take the levofloxacin, is compliant with that. In any regard, since her discharge home several weeks ago she has had intermittent nausea and vomiting and frequent abdominal discomfort. The abdominal pain is mainly located about the incision site from her hysterectomy but will occasionally radiate up into the epigastrium. She has a difficult time describing the discomfort, but goes on to state that is more of a tenderness. It seems to come and go, and is worse with movement. Over the last couple of days she has noticed a knot that has ?popped up? on the right side of the incision, and she notes a small amount of light purulence drainage at the site yesterday. She has not had a documented fever but has had some chills and sweats. Her lipase was elevated today, but CT the abdomen pelvis did not demonstrate pancreatitis. I discussed this with the patient, and she reports having history of pancreatitis 2 years ago and states that she is not having any symptoms whatsoever similar to that. She believes most of her discomfort is from the abscess at the incision site, but goes on to say that she thinks a lot of the discomfort is due to GERD as well. Apparently she had been taking Zantac for many years, but that was recalled and she has not been taking any other medication for the GERD. She has noticed an increase in symptoms as well as frequent belching. She denies hematemesis, melena, and hematochezia. No known history of gallbladder disease or attacks. No diarrhea. No documented fever. Review of Systems Review of Systems: Narrative: Twelve systems were reviewed with pertinent positives and negatives as per HPI. No documented fever but she reports subjective chills and sweats. No chest pain or shortness of breath. Intermittent nausea and vomiting as above. No diarrhea or constipation. No dysuria or hematuria. Denies blurry vision, polydipsia, and polyuria. States her glucose has been a bit better controlled recently. Except as documented, all other systems were reviewed and are negative. [facility] Past Medical History Medical History (Updated 07/13/19 @ 23:55 by Melani Cortes PA-C) Anxiety Arthritis Chronic GERD Fibroids HTN (hypertension) Hypercholesterolemia Obesity Type 2 diabetes mellitus Recent hemoglobin A1c was 11.0. Surgical History Surgical History (Updated 07/13/19 @ 23:50 by Melani Cortes PA-C) S/P total abdominal hysterectomy and bilateral salpingo-oophorectomy Complicated by postoperative abdominal wall abscesses requiring drain placement. Social History Social History Social History: The patient lives alone in [place]. She works at a local [employer]. She has no children. Her primary care provider is Dr. Brad Ortega. She designates her sister Jessee as her emergency contact. She is a full code. Smoking status: Never smoker Alcohol intake: never Substance use: never Gender identity (if verbalized by the patient): Female Spiritual care concerns: No Agree to blood products: Yes Meds Home Medications and Allergies Home Medications Medication Instructions Recorded Confirmed Type alogliptin 25 mg P
[2019-07-13 18:51] VITALS: BP 104/65; PULSE 65; RESP 16; TEMP 36.3; O2SAT 98
--- NOTE | 2019-07-13 19:55 | ADMGEN ---
This patient, Dior Gordon, was admitted to 3 Medical Room 346-01. Patient/family oriented to hospital policies and general routines including ID bracelet, bed and alarms, visiting hours, pain management, procedures, bathroom and other care routines, personal items, smoking policy, room service/diet, and visiting hours. Valuables list has been completed. Information on how to activate the Rapid Response Team has been discussed. Patient/Family are encouraged to report perceived risks to care and to ask questions if they do not understand what they are told or what they should do.
[2019-07-13 20:00] VITALS: BP 115/62; PULSE 73; RESP 18; TEMP 36.2; O2SAT 100; BMI 34.9
[2019-07-13] MEDS: SODIUM CHLORIDE 0.9% IV 1,000 ML 150 ML IV CONT (21:50)
[2019-07-13] MEDS: ONDANSETRON INJ 4 MG/2 ML VIAL IV PUSH (21:51)
[2019-07-13 21:54] LABS: Glucose Point of Care 64 (65-105)
[2019-07-13 22:00] VITALS: BP 110/59; PULSE 68; RESP 16; TEMP 37.1; O2SAT 100
--- NOTE | 2019-07-13 23:49 | PC.NURSE ---
Admission was done mainly by recall information, pt stated she had gone through this 3 times already when RN was asking admission and medication questions.
--- NOTE | 2019-07-13 23:50 | PC.NURSE ---
RN educated pt on reason she had a clear liquid diet, pt stated she was nauseous and requested crackers, again pt educated on only being allowed clear liquids at this time. Pt stated she was not going to easy to deal with if she wasnt allowed to eat . RN offered nausea medication and clear liquids that were available to pt. After this pt no longer would respond to RN, would only sigh. RN returned with juice, jello, and broth for pt along with nausea medication. BGL was check at this time. PT was below 70 and was unhappy with the staff, stating i knew this would happen, I know my body and ya'll are not letting me eat . PT agreed to drink apple juice, but requested RN leave pt alone. BGL recheck has been unable to be obtained at this time due to pts disagreeing.
[2019-07-14] VITALS: PULSE 68; RESP 16; O2SAT 100
[2019-07-14] MEDS: FAMOTIDINE 20 MG TABLET PO ×3 (02:16→20:58)
[2019-07-14] MEDS: ONDANSETRON INJ 4 MG/2 ML VIAL IV PUSH (05:42)
[2019-07-14] MEDS: SODIUM CHLORIDE 0.9% IV 1,000 ML 150 ML IV CONT ×3 (05:49→20:10)
[2019-07-14 06:00] VITALS: BP 102/49; PULSE 59; RESP 16; TEMP 36.9; O2SAT 99
[2019-07-14 06:10] LABS: Hematocrit 31.8 % (37.0-47.0); Hemoglobin 9.5 g/dL (12.0-15.0); Mean Corpuscular HGB Conc 29.9 g/dl (32-36); Mean Corpuscular Hemoglobin 25.6 pg (26-34); Mean Corpuscular Volume 85.7 fl (80-100); Mean Platelet Volume 10.3 fl (7.4-10.4); Platelet Count Result 318 k/mm3 (150-375); Red Blood Count 3.71 M/mm3 (4.2-5.4); Red Cell Distribution Width 15.6 % (11.5-14.5); White Blood Count 6.5 K/mm3 (4.5-10.0)
[2019-07-14 06:22] LABS: Alanine Aminotransferase 9 U/L (4-35); Albumin Level 3.9 g/dL (3.5-5.1); Alkaline Phosphatase 50 U/L (38-126); Aspartate Amino Transferase 17 U/L (14-36); Bilirubin,Total 0.2 mg/dL (0.2-1.3); Blood Urea Nitrogen 11 mg/dL (7-17); Calcium 8.8 mg/dL (8.4-10.2); Carbon Dioxide 28 mmol/L (22-30); Chloride 99 mmol/L (98-107); Estimated CRCL calculation 80 ml/min; Estimated Glomerular Filt Rate > 60; Glucose 139 mg/dL (65-105); Lipase 974 U/L (23-300); Potassium 4.2 mmol/L (3.4-5.0); Sodium 136 mmol/L (137-145)
[2019-07-14 06:24] LABS: Glucose Point of Care 132 (65-105)
[2019-07-14 08:46] LABS: Glucose Point of Care 162 (65-105)
[2019-07-14 11:40] VITALS: PULSE 59
[2019-07-14] MEDS: glipiZIDE 5 MG TABLET 10 MG PO (11:40)
[2019-07-14] MEDS: lisinopriL 20 MG TABLET 40 MG PO (11:40)
[2019-07-14] MEDS: METOPROLOL SUCCINATE EXT REL 50 MG TABCR PO (11:40)
[2019-07-14] MEDS: ESCITALOPRAM OXALATE 10 MG TABLET PO (11:40)
[2019-07-14] MEDS: ATORVASTATIN 10 MG TABLET PO (11:41)
[2019-07-14 11:57] LABS: Glucose Point of Care 202 (65-105)
--- NOTE | 2019-07-14 12:09 | PM.IMPN ---
Progress Note: A&P Assessment and Plan (1) Abdominal wall abscess: Code(s): L02.211 - Cutaneous abscess of abdominal wall Status: Acute Assessment and Plan: Patient underwent total abdominal hysterectomy, bilateral salpingo-oophorectomy, and adhesiolysis 06/07/[address] Jansen, discharged POD#3. She was hospitalized 06/21/19 - 06/23/19 for subcutaneous wound abscesses managed by Dr Jansen - drains were placed and she was treated with abx, discharged with Levaquin and Flagyl. She tells me she did not see anyone in the office after her last discharge, however it appears that she saw Dr Jansen at least once and had drains removed. She reports she stopped taking the Flagyl due to a cough. Readmitted in this setting with continued abdominal pain, nausea, vomiting. Further recommendations per Dr Jansen. She has been started on IV Zosyn. (2) Elevated lipase: Code(s): R74.8 - Abnormal levels of other serum enzymes Status: Acute Assessment and Plan: Patient presents with nausea and vomiting. Lipase elevated on arrival, improved but still high today. RUQ ultrasound shows no pancreatic abnormalities. Lipase may be elevated 2/2 vomiting. Patient would really like to eat today. Discussed diet would need to be cut back if she would keep vomiting. Advance diet today if she can tolerate. Recheck lipase in AM. (3) Type 2 diabetes mellitus: Code(s): E11.9 - Type 2 diabetes mellitus without complications Status: Acute Assessment and Plan: A1c 10.6 earlier this month. She is on high-dose SSI now, alogliptin held as it is nonformulary. Continue her glipized and metformin. She has been hesitant to add back long-acting insulin in the past, but she may require this. Discussed importance of tight glycemic control for wound healing. (4) HTN (hypertension): Code(s): I10 - Essential (primary) hypertension Status: Chronic Assessment and Plan: Stable on home metoprolol and lisinopril. Monitor BP and adjust as needed. (5) DVT prophylaxis: Code(s): Z29.9 - Encounter for prophylactic measures, unspecified Status: Acute Assessment and Plan: SCDs Subjective Date/time seen: 07/14/19 1015 Interval history: Ms. Gordon is a 43yo F admitted with abdominal pain and abdominal abscess. She reports she feels about the same as yesterday with no improvement. She is quite frustrated to be woken up and is minimally cooperative with exam. She is very much interested in eating solid foods today. She denies nausea or vomiting this morning and denies vomiting yesterday. She denies chest pain, shortness of breath, or calf tenderness. Review of Systems Review of Systems: Narrative: Twelve systems were reviewed with pertinent positives and negatives as per HPI. Exam Narrative: Exam Narrative: General: Patient resting supine in bed in no acute distress. Sleepy. HEENT: Normocephalic, EOMI, oral mucosa moist. Cardiovascular: Rate and rhythm are regular. Respiratory: Lungs clear to auscultation all molina. Non-labored breathing. Abdomen: Soft, tenderness of palpation of lower abdomen without guarding, bowel sounds present. Extremities: Peripheral pulses intact. No edema. Neuro: No focal neurological deficits. Speech is clear. Objective Data Vital Signs Vital Signs: Last Vital Signs Temp 97.6 F 07/14/19 14:00 Pulse 67 07/14/19 14:00 Resp 16 07/14/19 14:00 BP 111/52 L 07/14/19 14:00 Pulse Ox 100 07/14/19 14:00 Intake/Output Intake/Output: Intake & Output 07/11/19 07/12/19 07/13/19 07/14/19 23:59 23:59 23:59 23:59 Intake Total 1150 2750 Output Total 1300 Balance 1150 1450 Meds/Results Medications: Active Medications Generic Name Dose Route Start Last Admin Trade Name Freq PRN Reason Stop Dose Admin Atorvastatin Calcium
[2019-07-14 14:00] VITALS: BP 111/52; PULSE 67; RESP 16; TEMP 36.4; O2SAT 100
[2019-07-14 14:25] LABS: Glucose Point of Care 259 (65-105)
[2019-07-14] MEDS: INSULIN ASPART (*BKC) 100 UNITS/ML SUB-Q ×2 (14:25→17:43)
[2019-07-14 17:01] LABS: Glucose Point of Care 282 (65-105)
--- NOTE | 2019-07-14 17:37 | WPDCN ---
Assessment and Plan Assessment and plan (1) Abdominal wall abscess: Code(s): L02.211 - Cutaneous abscess of abdominal wall Status: Acute Assessment and Plan: CT scan revealed a persistent subcutaneous is 3 cm abscess. There may be a tract to the cutaneous vesicular feature on the wound. The the vesicular lesion will be opened tomorrow and probed. Will consider packing at that time if there is a defect that needs debridement and packing.. 25 minutes was spent on this consultation (2) Acute pancreatitis: Code(s): K85.90 - Acute pancreatitis without necrosis or infection, unspecified Status: Acute HPI Data of Consult Date/Time: 07/14/19 17:37 Requesting Physician: Janes Christensen MD Primary Care Provider: Brad Ortega MD Consult Narrative Narrative: Dior Gordon is a 43 year old female with history of diabetes who presented for abdominal pain. The patient is about 5 weeks postop from a total abdominal hysterectomy with BSO. She had subcutaneous wound abscess. She was admitted for this. She was admitted for IV antibiotics and drains were placed in two of the 3 subcutaneous abscesses. After several days the drains were no longer productive and they were removed in the office. A short time after that she return for drainage at the incision site. Subcutaneous abscess was diagnosed and was opened in the office. It was packed. She was unable to follow-up for packing changes. Home health could not be arranged for this patient. She is here for abdominal pain at this admission admission. She reports to me that her abdominal pain is primary upper abdominal. Review of Systems Constitutional: Constitutional: Reports no additional constitutional complaints, Denies fatigue, Denies headache(s), Denies lethargy and Denies weakness Eyes: Eyes: Reports no additional eye complaints, Denies blurry vision and Denies photophobia ENT: Reports as per HPI, Denies headache(s) and Denies neck pain Cardiovascular: Cardiovascular: Denies chest pain, Denies diaphoresis, Denies leg edema, Denies palpitations and Denies dyspnea Respiratory: Respiratory: Denies hemoptysis, Denies dyspnea and Denies wheezing Gastrointestinal: Gastrointestinal: Denies abdominal pain, Denies melena, Denies bloating, Denies hematochezia, Denies nausea and Denies vomiting Genitourinary: Genitourinary: Reports no additional female genitourinary complaints Musculoskeletal: Musculoskeletal: Denies joint swelling, Denies neck pain, Denies numbness and Denies stiffness Neurologic: Denies Abnormal speech present, Denies confusion, Denies headache(s), Denies numbness and Denies weakness Psychiatric: Psychiatric: Denies anxiety, Denies confusion, Denies depression, Denies homicidal ideation and Denies suicidal ideation Endocrine: Endocrine: Denies fatigue and Denies palpitations Allergic/Immunologic: Allergic/Immunologic: Denies wheezing PMFSH Past Medical History Medical History (Updated 07/13/19 @ 23:55 by Melani Cortes PA-C) Anxiety Arthritis Chronic GERD Fibroids HTN (hypertension) Hypercholesterolemia Obesity Type 2 diabetes mellitus Recent hemoglobin A1c was 11.0. Surgical History Surgical History (Updated 07/13/19 @ 23:50 by Melani Cortes PA-C) S/P total abdominal hysterectomy and bilateral salpingo-oophorectomy Complicated by postoperative abdominal wall abscesses requiring drain placement. Social History Social History Social History: The patient lives alone in [place]. She works at a local [employer]. She has no children. Her primary care provider is Dr. Brad Ortega. She designates her sister Jessee as her emergency contact. She is a full code. Smoking status: Never smoker Alcohol intake: never Substance use: never Gender identity (if verbalized by the patient): Female Spiritual care concerns: No Agree to blood
[2019-07-14] MEDS: FERROUS SULFATE 324 MG TABLET PO (17:42)
[2019-07-14] MEDS: metFORMIN HCL 500 MG TABLET 1000 MG PO (20:58)
[2019-07-14 21:39] LABS: Glucose Point of Care 212 (65-105)
[2019-07-14 22:00] VITALS: BP 126/57; PULSE 67; RESP 16; TEMP 36.3; O2SAT 100
[2019-07-15] MEDS: SODIUM CHLORIDE 0.9% IV 1,000 ML 150 ML IV CONT ×3 (04:05→19:46)
[2019-07-15 06:00] VITALS: BP 136/71; PULSE 66; RESP 16; TEMP 36.4; O2SAT 100
[2019-07-15 06:41] LABS: Blood Urea Nitrogen 7 mg/dL (7-17); Calcium 8.3 mg/dL (8.4-10.2); Carbon Dioxide 23 mmol/L (22-30); Chloride 104 mmol/L (98-107); Estimated CRCL calculation 104 ml/min; Estimated Glomerular Filt Rate > 60; Glucose 157 mg/dL (65-105); Lipase 1462 U/L (23-300); Potassium 4.3 mmol/L (3.4-5.0); Sodium 136 mmol/L (137-145)
[2019-07-15 09:07] LABS: Glucose Point of Care 143 (65-105)
[2019-07-15 09:15] VITALS: PULSE 69; RESP 16; O2SAT 100
[2019-07-15] MEDS: FERROUS SULFATE 324 MG TABLET PO ×2 (09:22→18:12)
[2019-07-15] MEDS: FAMOTIDINE 20 MG TABLET PO ×2 (09:22→19:54)
[2019-07-15] MEDS: ESCITALOPRAM OXALATE 10 MG TABLET PO (09:22)
[2019-07-15] MEDS: glipiZIDE 5 MG TABLET 10 MG PO (09:22)
[2019-07-15] MEDS: metFORMIN HCL 500 MG TABLET 1000 MG PO ×2 (09:26→18:12)
[2019-07-15] MEDS: ATORVASTATIN 10 MG TABLET PO (09:26)
[2019-07-15 09:54] VITALS: PULSE 69
[2019-07-15] MEDS: METOPROLOL SUCCINATE EXT REL 50 MG TABCR PO (09:54)
[2019-07-15 12:15] LABS: Glucose Point of Care 206 (65-105)
[2019-07-15] MEDS: INSULIN ASPART (*BKC) 100 UNITS/ML SUB-Q ×2 (12:22→18:04)
[2019-07-15 14:00] VITALS: BP 136/73; PULSE 67; RESP 18; TEMP 36.4; O2SAT 100
--- NOTE | 2019-07-15 14:01 | PM.OP ---
Procedure Note - Brief Procedure Note - Brief Date of procedure: 07/15/19 Pre-op diagnosis: Abdominal pain. Postop wound abscess, pancreatitis Post-op diagnosis: same Procedure performed: Incision and drainage of subcutaneous abscess of surgical wound Description of procedure: At the bedside the incision was cleaned with Betadine. The area where there was a vesicular appearing skin was injected with lidocaine. The vesicular area was transected with scalpel. The subcutaneous fat was also injected with lidocaine down the level of fascia. A 25 mm skin incision was made in the area of the abnormal skin healing. The subcutaneous tissue was then probed with a cotton tip applicator. There was a defect that extended about 4 cm below the skin. It was probed multiple times and debrided. It was then packed with a quarter-inch iodoform gauze. The incision was covered with gauze and a tape was applied to hold the gauze in place. Anesthesia: local Surgeon: Darren Jansen MD Estimated blood loss (mL): 3 Drains: No Packing: Yes Pathology: none sent Complications: No immediate complications Condition: stable Disposition: floor Findings: There was about a 2 cm area of vesicular skin at the incision site. It was on the right 3rd of the healing incision. The skin was intact but thin in this area. It was flocculent. This all was located about the midclavicular line on the right.
[2019-07-15 18:19] LABS: Glucose Point of Care 209 (65-105)
--- NOTE | 2019-07-15 19:09 | PM.IMPN ---
Progress Note: A&P Assessment and Plan (1) Abdominal wall abscess: Code(s): L02.211 - Cutaneous abscess of abdominal wall Status: Acute Assessment and Plan: -----patient tolerated procedure well today. I do not see any new microbiology from the incision and drainage today. She does not have a leukocytosis nor fever. She appears to be doing well. Continue Zosyn. patient underwent total abdominal hysterectomy, bilateral salpingo-oophorectomy, and adhesiolysis 06/07/[address] Jansen. She was hospitalized 06/21/19 - 06/23/19 for subcutaneous wound abscesses managed by Dr Jansen - drains were placed and she was treated with abx, discharged with Levaquin and Flagyl. She tells me she did not see anyone in the office after her last discharge, however it appears that she saw Dr Jansen at least once and had drains removed. She reports she stopped taking the Flagyl due to a cough. Readmitted in this setting with continued abdominal pain, nausea, vomiting. Further recommendations per Dr Jansen. (2) Elevated lipase: Code(s): R74.8 - Abnormal levels of other serum enzymes Status: Acute Assessment and Plan: Patient presents with nausea and vomiting. Lipase elevated again today. RUQ ultrasound and abd CT shows no pancreatic abnormalities. Lipase may be elevated 2/2 vomiting. Pt has been tolerating her diet. Will repeat lipase tomorrow. (3) Type 2 diabetes mellitus: Code(s): E11.9 - Type 2 diabetes mellitus without complications Status: Acute Assessment and Plan: -----A1c 10.6 earlier this month. Last glucose 209. She is on high-dose SSI and alogliptin held as it is nonformulary. Continue her glipized and metformin. She has been hesitant to add back long-acting insulin in the past, but she may require this. Discussed importance of tight glycemic control for wound healing. (4) HTN (hypertension): Code(s): I10 - Essential (primary) hypertension Status: Chronic Assessment and Plan: -----Last bp 136/73 --Stable on home metoprolol and lisinopril. Monitor BP and adjust as needed. (5) DVT prophylaxis: Code(s): Z29.9 - Encounter for prophylactic measures, unspecified Status: Acute Assessment and Plan: SCDs Time Spent With Patient Time with patient: 25 - 35 minutes Subjective Date/time seen: 07/15/19 19:09 Interval history: Pt is a 43-year-old female here for abdominal abscess. Patient was seen today after her incision and drainage and she was doing well. She does have some pain to the area but she is able to walk to the bathroom and move around. She denies chest pain, shortness of breath, fevers, chills, nausea or vomiting. She has been having loose stools with antibiotic. She feels weak today Review of Systems Review of Systems: All systems reviewed & are unremarkable except as noted in HPI and below Exam Narrative: Exam Narrative: General: Overweight patient resting comfortably in bed in no acute distress HEENT: normocephalic Neck: supple Neuro: Alert and oriented x for CV:RRR Resp:CTA Abd: Soft, non distended. Pain to palpation to the area. Incision site was just packed so I deferred my exam and will address it tomorrow to ensure hemodynamic stability and decrease pain. Positive bowel sounds Extremities: No swelling, erythema, or pain to palpation. Objective Data Vital Signs Vital Signs: Vital Signs - 24 hr 07/14/19 22:00 07/15/19 06:00 07/15/19 09:15 Temperature 97.4 F L 97.5 F L Pulse Rate 67 66 69 Respiratory Rate 16 16 16 Blood Pressure 126/57 L 136/71 Pulse Oximetry 100 100 100 07/15/19 09:54 07/15/19 14:00 Temperature 97.5 F L Pulse Rate 69 67 Respiratory Rate 18 Blood Pressure 136/73 Pulse Oximetry 100 Intake/Output Intake/Output: Intake & Output 07/12/19 07/13/19 07/14/19 07/15/19 23:59 23:59 23:59 23:59 Intake Total 1150 6530 3030 Output Total 2300 900 B
[2019-07-15] MEDS: TRAMADOL HCL 50 MG TABLET PO (19:49)
[2019-07-15 20:46] VITALS: BP 159/74; PULSE 79; RESP 18; TEMP 36.9; O2SAT 100
[2019-07-15] MEDS: ONDANSETRON INJ 4 MG/2 ML VIAL IV PUSH (23:20)
[2019-07-16] VITALS (7 sets, daily range): BP systolic 143–166; BP diastolic 77–83; PULSE 67–78; RESP 16; TEMP 36–37.1; O2SAT 95–100
[2019-07-16] MEDS: SODIUM CHLORIDE 0.9% IV 1,000 ML 150 ML IV CONT (03:12)
[2019-07-16] MEDS: TRAMADOL HCL 50 MG TABLET PO ×4 (03:13→21:30)
[2019-07-16] MEDS: ONDANSETRON INJ 4 MG/2 ML VIAL IV PUSH ×3 (06:04→21:30)
[2019-07-16 06:13] LABS: Basophils Percent Auto 0.4 % (0.2-1.2); Eosinophils Absolute Auto 0.2 K/mm3 (0-0.3); Eosinophils Percent Auto 3.1 % (0-4.4); Hematocrit 27.6 % (37.0-47.0); Hemoglobin 8.3 g/dL (12.0-15.0); Immature Granulocyte Absolute 0.01 K/mm3 (0.00-0.031); Immature Granulocyte Percent A 0.2 % (0-0.5); Lymphocytes Absolute Auto 1.85 K/mm3 (0.9-3.2); Lymphocytes Percent Auto 36.2 % (18.3-44.2); Mean Corpuscular HGB Conc 30.1 g/dl (32-36); Mean Corpuscular Hemoglobin 25.2 pg (26-34); Mean Corpuscular Volume 83.9 fl (80-100); Mean Platelet Volume 9.7 fl (7.4-10.4); Monocytes Absolute Auto 0.4 K/mm3 (0.1-0.6); Neutrophils Absolute Auto 2.7 K/mm3 (1.3-6.7); Neutrophils Percent Auto 53.1 % (45.5-73.1); Platelet Count Result 262 k/mm3 (150-375); Red Blood Count 3.29 M/mm3 (4.2-5.4); Red Cell Distribution Width 15.4 % (11.5-14.5); White Blood Count 5.1 K/mm3 (4.5-10.0)
[2019-07-16 06:28] LABS: Alanine Aminotransferase 9 U/L (4-35); Albumin Level 3.3 g/dL (3.5-5.1); Alkaline Phosphatase 45 U/L (38-126); Aspartate Amino Transferase 17 U/L (14-36); Bilirubin,Total < 0.1 mg/dL (0.2-1.3); Blood Urea Nitrogen 6 mg/dL (7-17); Carbon Dioxide 24 mmol/L (22-30); Chloride 107 mmol/L (98-107); Estimated CRCL calculation 80 ml/min; Estimated Glomerular Filt Rate > 60; Glucose 137 mg/dL (65-105); Lipase 367 U/L (23-300); Magnesium 1.5 mg/dL (1.6-2.3); Potassium 4.1 mmol/L (3.4-5.0); Sodium 140 mmol/L (137-145)
[2019-07-16] MEDS: ESCITALOPRAM OXALATE 10 MG TABLET PO (09:49)
[2019-07-16] MEDS: FERROUS SULFATE 324 MG TABLET PO ×2 (09:49→18:46)
[2019-07-16] MEDS: lisinopriL 20 MG TABLET 40 MG PO (09:49)
[2019-07-16] MEDS: metFORMIN HCL 500 MG TABLET 1000 MG PO ×2 (09:49→18:46)
[2019-07-16] MEDS: ATORVASTATIN 10 MG TABLET PO (09:49)
[2019-07-16] MEDS: glipiZIDE 5 MG TABLET 10 MG PO (09:49)
[2019-07-16] MEDS: METOPROLOL SUCCINATE EXT REL 50 MG TABCR PO (09:50)
[2019-07-16] MEDS: FAMOTIDINE 20 MG TABLET PO ×2 (09:50→20:02)
[2019-07-16 10:09] LABS: Glucose Point of Care 129 (65-105)
[2019-07-16] MEDS: MAGNESIUM OXIDE 200 MG TABLET PO ×2 (10:16→20:02)
--- NOTE | 2019-07-16 11:03 | PHAR ---
HOME MEDICATIONS VERIFIED BY PHARMACY: VIRTUSSIN AC SYRUP CANNOT BE VERIFIED- LIQUID FLUCONAZOLE 200MG TABLET- #1 TABLET BROUGHT IN (ORIGINAL RX WAS ONLY FOR 2 DOSES)
[2019-07-16] MEDS: DIPHENHYDRAMINE 1%/ZINC 0.1% CREAM 30 GM TUBE 1 APPLIC TOPICAL (12:08)
[2019-07-16 12:12] LABS: Glucose Point of Care 163 (65-105)
--- NOTE | 2019-07-16 17:02 | PM.IMPN ---
Progress Note: A&P Assessment and Plan (1) Abdominal wall abscess: Code(s): L02.211 - Cutaneous abscess of abdominal wall Status: Acute Assessment and Plan: -----patient tolerated procedure well yesterday but is still having some pain. Continue with Dr. Jansen's recs. I do not see any new microbiology from the incision and drainage She does not have a leukocytosis nor fever. She appears to be doing well. Continue Zosyn. patient underwent total abdominal hysterectomy, bilateral salpingo-oophorectomy, and adhesiolysis 06/07/[address] Jansen. She was hospitalized 06/21/19 - 06/23/19 for subcutaneous wound abscesses managed by Dr Jansen - drains were placed and she was treated with abx, discharged with Levaquin and Flagyl. She tells me she did not see anyone in the office after her last discharge, however it appears that she saw Dr Jansen at least once and had drains removed. She reports she stopped taking the Flagyl due to a cough. Readmitted in this setting with continued abdominal pain, nausea, vomiting. Further recommendations per Dr Jansen. (2) Elevated lipase: Code(s): R74.8 - Abnormal levels of other serum enzymes Status: Acute Assessment and Plan: Patient presents with nausea and vomiting. Lipase much better today. I todl her to advance her diet as tolerated and see how she does today RUQ ultrasound and abd CT shows no pancreatic abnormalities. She has had a hx of idopathic pancreatitis in the past. (3) Type 2 diabetes mellitus: Code(s): E11.9 - Type 2 diabetes mellitus without complications Status: Acute Assessment and Plan: -----A1c 10.6 earlier this month. Last glucose 163. She is on high-dose SSI and alogliptin held as it is nonformulary. Continue her glipized and metformin. She has been hesitant to add back long-acting insulin in the past, but she may require this. Discussed importance of tight glycemic control for wound healing. (4) HTN (hypertension): Code(s): I10 - Essential (primary) hypertension Status: Chronic Assessment and Plan: -----Last bp 144/77 --Stable on home metoprolol and lisinopril. Monitor BP and adjust as needed. (5) DVT prophylaxis: Code(s): Z29.9 - Encounter for prophylactic measures, unspecified Status: Acute Assessment and Plan: SCDs Subjective Date/time seen: 07/16/19 17:02 Interval history: Pt is a 43-year-old female here for abdominal abscess. Patient was seen today and is doing okay. She has been having some occasional nausea with loose stools. She denies vomiting, chest pain, shortness of breath, fevers, chills, or leg swelling. She has a history of pancreatitis about 2 years ago and does not understand why she is having pancreatitis symptoms now. Her epigastric pain is still there but improved since yesterday. She has pain that is currently 8 out of 10 at her abscess site. Exam Narrative: Exam Narrative: General: Overweight patient resting comfortably in bed in no acute distress HEENT: normocephalic Neck: supple Neuro: Alert and oriented x 4 CV:RRR Resp:CTA Abd: Soft, non distended. Pain to palpation to the area. Incision site was packed so I deferred my exam to ensure hemodynamic stability and decrease pain. there is no bleeding or discharge from the bandage. Positive bowel sounds Extremities: No swelling, erythema, or pain to palpation. Objective Data Vital Signs Vital Signs: Vital Signs - 24 hr 07/15/19 20:46 07/16/19 05:52 07/16/19 08:00 Temperature 98.4 F 97.9 F Pulse Rate 79 78 67 Respiratory Rate 18 16 16 Blood Pressure 159/74 H 158/78 H Pulse Oximetry 100 95 100 07/16/19 09:46 07/16/19 09:50 07/16/19 14:00 Temperature 96.8 F L Pulse Rate 69 67 Respiratory Rate 16 Blood Pressure 152/83 H 143/77 H Pulse Oximetry 100 Intake/Output Intake/Output: Intake & Output 07/13/19 07/14/19 07/15/19 07/16/19 23:59 23
--- NOTE | 2019-07-16 17:38 | PM.GYNPNOP ---
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 The abscess was packed yesterday after I&D. It is uncertain whether the I&D of the abscess site reached the abscess pocket seen on CT scan. We had repeat CT scan to see if abscess side is being drained by this tract created by the I and D . As mentioned in the previous note, this area of the wound was incised and debrided in the office. The patient was unable to follow up and it appears that skin healed with a collection of fluid behind the skin surface. It has been reopened and repacked. Await repeat CT scan to determine status of the abscess pocket in the abdominal wall. Time Spent With Patient Time: Total time spent is greater than 50% in coordination of care (as documented) at patient's floor/unit and/or counseling patient: Time with patient: 15 - 25 minutes WHEEL WORKER- PN:Subj Post-Op Subjective Date/time seen: 07/16/19 17:38 Subjective: patient reports feeling better, pain is well controlled and patient is tolerating oral intake Exam Const: General: healthy appearing, comfortable and no acute distress Resp: Auscultation: clear to auscultation bilaterally, no rales, no rhonchi and no wheezes Cardio: Rate: regular rate Heart sounds: no click, no murmurs and no rubs GI: Inspection: non-distended GI Palp: No abdominal tenderness Auscultation: normal bowel sounds Other: Incision is soft, well approximated and healed with the exception of the 2 cm area at the right 3rd of the incision site. The open defect is patent. The packing was removed. That was repacked with new iodoform gauze. There is minimal induration or erythema at this area. It is tender. Extrem: General: normal to inspection, no pedal edema and no calf tenderness WHEEL WORKER - PN: Obj Data Vital Signs Vital Signs: Vital Signs - 24 hr 07/15/19 20:46 07/16/19 05:52 07/16/19 08:00 Temperature 98.4 F 97.9 F Pulse Rate 79 78 67 Respiratory Rate 18 16 16 Blood Pressure 159/74 H 158/78 H Pulse Oximetry 100 95 100 07/16/19 09:46 07/16/19 09:50 07/16/19 14:00 Temperature 96.8 F L Pulse Rate 69 67 Respiratory Rate 16 Blood Pressure 152/83 H 143/77 H Pulse Oximetry 100 Intake/Output Intake/Output: Intake & Output 07/13/19 07/14/19 07/15/19 07/16/19 23:59 23:59 23:59 23:59 Intake Total 1150 6530 4080 2290 Output Total 2300 1700 1350 Balance 1150 4230 2380 940 Meds/Results Medications: Active Medications Generic Name Dose Route Start Last Admin Trade Name Freq PRN Reason Stop Dose Admin Atorvastatin Calcium 10 mg 07/14/19 10:30 07/16/19 09:49 Lipitor PO 10 mg DAILY ONI Administration Dextrose 12.5 gm 07/14/19 00:00 Dextrose 50% Syringe IV PUSH PRN PRN Hypoglycemia Protocol Diphenhydramine HCl 25 mg 07/15/19 09:14 07/15/19 23:20 Benadryl Cap PO 25 mg Q6H PRN Administration Itching Escitalopram Oxalate 10 mg 07/14/19 10:30 07/16/19 09:49 Lexapro PO 10 mg DAILY ONI Administration Famotidine 20 mg 07/14/19 09:00 07/16/19 09:50 Pepcid PO 20 mg Q12HR ONI Administration Ferrous Sulfate 324 mg 07/14/19 17:00 07/16/19 09:49 Ferrous Sulfate PO 324 mg BID ONI Administration Glipizide 10 mg 07/14/19 10:30 07/16/19 09:49 Glucotrol PO 10 mg DAILY ONI Administration Glucagon 1 mg 07/14/19 00:00 Glucagon For Inj IM PRN PRN Hypoglycemia Protocol Glucose 15 gm 07/14/19 00:00 Glutose 15 PO PRN PRN Hypoglycemia Protocol Piperacillin/Tazobactam/Dextrose 3.375 gm in 50 mls @ 100 mls/hr 07/14/19 05:00 07/16/19 12:28 Zosyn 3.375 Gm/D5w 50ml Pm IVPB 100 mls/hr Q6HR ONI Administration Sodium Chloride 1,000 mls @ 75 mls/hr 07/13/19 20:55 07/16/19 06:07 Normal
[2019-07-16 18:09] LABS: Glucose Point of Care 160 (65-105)
[2019-07-16 23:27] LABS: Glucose Point of Care 241 (65-105)
[2019-07-17] VITALS (8 sets, daily range): BP systolic 145–168; BP diastolic 72–84; PULSE 83–90; RESP 16–20; TEMP 36.1–36.7; O2SAT 92–97
[2019-07-17] MEDS: SODIUM CHLORIDE 0.9% IV 1,000 ML 150 ML IV CONT (02:43)
[2019-07-17] MEDS: DIPHENHYDRAMINE 1%/ZINC 0.1% CREAM 30 GM TUBE 1 APPLIC TOPICAL (02:45)
[2019-07-17] MEDS: ONDANSETRON INJ 4 MG/2 ML VIAL IV PUSH ×2 (02:45→08:01)
[2019-07-17] MEDS: lisinopriL 20 MG TABLET 40 MG PO (06:04)
[2019-07-17] MEDS: METOPROLOL SUCCINATE EXT REL 50 MG TABCR PO (06:04)
[2019-07-17] MEDS: TRAMADOL HCL 50 MG TABLET PO (06:05)
[2019-07-17 07:53] LABS: Hematocrit 28.1 % (37.0-47.0); Hemoglobin 8.5 g/dL (12.0-15.0); Mean Corpuscular HGB Conc 30.2 g/dl (32-36); Mean Corpuscular Hemoglobin 25.8 pg (26-34); Mean Corpuscular Volume 85.2 fl (80-100); Mean Platelet Volume 10.2 fl (7.4-10.4); Platelet Count Result 283 k/mm3 (150-375); Red Cell Distribution Width 15.5 % (11.5-14.5); White Blood Count 6.4 K/mm3 (4.5-10.0)
[2019-07-17 08:11] LABS: Blood Urea Nitrogen 4 mg/dL (7-17); Calcium 8.2 mg/dL (8.4-10.2); Carbon Dioxide 26 mmol/L (22-30); Chloride 104 mmol/L (98-107); Estimated CRCL calculation 80 ml/min; Estimated Glomerular Filt Rate > 60; Glucose 185 mg/dL (65-105); Magnesium 1.6 mg/dL (1.6-2.3); Potassium 4.4 mmol/L (3.4-5.0); Sodium 139 mmol/L (137-145)
[2019-07-17] MEDS: SODIUM CHLORIDE 0.9% IV 1,000 ML 75 ML IV CONT (09:55)
--- NOTE | 2019-07-17 09:58 | PC.NURSE ---
Pt not wanting medications until she eats breakfast. Pt stated she will be ordering soon.
[2019-07-17 10:59] LABS: Glucose Point of Care 148 (65-105)
--- NOTE | 2019-07-17 11:57 | PM.IMPN ---
Progress Note: A&P Assessment and Plan (1) Abdominal wall abscess: Code(s): L02.211 - Cutaneous abscess of abdominal wall Status: Acute Assessment and Plan: -----Dr. hunter seing the patient and has repeated the CT. Will await his recommendations going forward. Pt is vomiting now. Her WBC is normal and she has been afebrile. gap is 9. Continue abx at this time. patient underwent total abdominal hysterectomy, bilateral salpingo-oophorectomy, and adhesiolysis 06/07/[address] Hunter. She was hospitalized 06/21/19 - 06/23/19 for subcutaneous wound abscesses managed by Dr Hunter - drains were placed and she was treated with abx, discharged with Levaquin and Flagyl. She tells me she did not see anyone in the office after her last discharge, however it appears that she saw Dr Hunter at least once and had drains removed. She reports she stopped taking the Flagyl due to a cough. Readmitted in this setting with continued abdominal pain, nausea, vomiting. Further recommendations per Dr Hunter. (2) Elevated lipase: Code(s): R74.8 - Abnormal levels of other serum enzymes Status: Acute Assessment and Plan: ----Pt is now vomiting today. Will change her to clear liquids and repat lipase. Her lipase was near normal yesterday and her symptoms had improved so it wasn't done with her morning labs. RUQ ultrasound and abd CT shows no pancreatic abnormalities in the last few days. She has had a hx of idopathic pancreatitis in the past. Zofran is not helping so we will try promethazin. She doesn't have a lot of epigastric pain. (3) Type 2 diabetes mellitus: Code(s): E11.9 - Type 2 diabetes mellitus without complications Status: Acute Assessment and Plan: -----A1c 10.6 earlier this month. Last glucose 148. She is on high-dose SSI and alogliptin held as it is nonformulary. Will hold her oral medications at this time since she is throwing up. Her gap is normal, no signs of DKA as of now. (4) HTN (hypertension): Code(s): I10 - Essential (primary) hypertension Status: Chronic Assessment and Plan: -----Last bp 145/76 --Stable on home metoprolol and lisinopril. Monitor BP and adjust as needed. (5) DVT prophylaxis: Code(s): Z29.9 - Encounter for prophylactic measures, unspecified Status: Acute Assessment and Plan: SCDs Subjective Date/time seen: 07/17/19 11:57 Interval history: Pt is a 43-year-old female here for abdominal abscess. Patient was seen today and is not doing well. She was actively puking in the trash can during my exam. She said she did not throw up yesterday but today started feeling worse and has now thrown up several times. She denies CP or SOB but states she feels 'crackly'. her abdominal pain is actually a little better today and she is not as tender in the epigastric area. She denies CP, sob, fevers, chills, or leg swelling. Exam Narrative: Exam Narrative: General: Overweight patient resting comfortably in bed in no acute distress actively throwing up. HEENT: normocephalic Neck: supple Neuro: Alert and oriented x 4 CV:RRR Resp:CTA--no crackles or wheezing. Abd: Soft, non distended. pain to palpation to the epigastric area and she says this is not so much tender but 'sore'. Incision site with gaze covering it. Positive bowel sounds. Extremities: No swelling, erythema, or pain to palpation. Objective Data Vital Signs Vital Signs: Vital Signs - 24 hr 07/16/19 14:00 07/16/19 19:56 07/16/19 20:00 Temperature 96.8 F L 98.7 F Pulse Rate 67 71 71 Respiratory Rate 16 16 16 Blood Pressure 143/77 H 166/79 H Pulse Oximetry 100 96 96 07/17/19 05:35 07/17/19 06:04 07/17/19 07:23 Temperature 97 F L Pulse Rate 83 83 83 Respiratory Rate 16 Blood Pressure 168/84 H 145/76 H Pulse Oximetry 92 Intake/Output Intake/Output: Intake & Output 07/14/19 07/15/19 07/16/19 07/17/19 23:59 23:59 23:59 23:59
[2019-07-17] MEDS: ONDANSETRON HCL ODT 4 MG TABLET PO (12:01)
[2019-07-17 12:05] LABS: Lipase 230 U/L (23-300)
--- NOTE | 2019-07-17 13:09 | PM.GYNPNOP ---
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 The wound is significantly shower today. 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 She did not have access to transportation are home health previously. This abscess was previously packed. But the patient could not follow up. This appears to be a reaccumulation of a previously drained abscess. Time Spent With Patient Time: Total time spent is greater than 50% in coordination of care (as documented) at patient's floor/unit and/or counseling patient: Time with patient: 15 - 25 minutes PENCIL INSPECTOR- PN:Subj Post-Op Subjective Date/time seen: 07/17/19 13:09 Interval history: Patient is a 43-year-old female was admitted for abdominal pain. She has pancreatitis. She was observed to have a reaccumulation of fluid in 1 of her abscess cavities in the surgical incision from 5 weeks ago. Incision and drainage and debridement of the wound was conducted. CT suggests that there is a patent seen now between the skin surface and the apparent abscess cavity. It is being packed with I would perform gauze. Exam Const: General: healthy appearing, comfortable and no acute distress Resp: Auscultation: clear to auscultation bilaterally, no rales, no rhonchi and no wheezes Cardio: Rate: regular rate Heart sounds: no click, no murmurs and no rubs GI: Inspection: non-distended GI Palp: No abdominal tenderness Auscultation: normal bowel sounds Extrem: General: normal to inspection, no pedal edema and no calf tenderness PENCIL INSPECTOR - PN: Obj Data Vital Signs Vital Signs: Vital Signs - 24 hr 07/16/19 14:00 07/16/19 19:56 07/16/19 20:00 Temperature 96.8 F L 98.7 F Pulse Rate 67 71 71 Respiratory Rate 16 16 16 Blood Pressure 143/77 H 166/79 H Pulse Oximetry 100 96 96 07/17/19 05:35 07/17/19 06:04 07/17/19 07:23 Temperature 97 F L Pulse Rate 83 83 83 Respiratory Rate 16 Blood Pressure 168/84 H 145/76 H Pulse Oximetry 92 Intake/Output Intake/Output: Intake & Output 07/14/19 07/15/19 07/16/19 07/17/19 23:59 23:59 23:59 23:59 Intake Total 6530 4080 3820 1550 Output Total 2300 1700 2300 1800 Balance 4230 2380 1520 -250 Meds/Results Medications: Active Medications Generic Name Dose Route Start Last Admin Trade Name Freq PRN Reason Stop Dose Admin Atorvastatin Calcium 10 mg 07/14/19 10:30 07/17/19 12:15 Lipitor PO Not Given DAILY ONI Dextrose 12.5 gm 07/14/19 00:00 Dextrose 50% Syringe IV PUSH PRN PRN Hypoglycemia Protocol Diphenhydramine HCl 25 mg 07/15/19 09:14 07/15/19 23:20 Benadryl Cap PO 25 mg Q6H PRN Administration Itching Escitalopram Oxalate 10 mg 07/14/19 10:30 07/17/19 12:15 Lexapro PO Not Given DAILY [facility] Famotidine 20 mg 07/14/19 09:00 07/17/19 12:15 Pepcid PO Not Given Q12HR [facility] Ferrous Sulfate 324 mg 07/14/19 17:00 07/17/19 12:15 Ferrous Sulfate PO Not Given BID [facility] Glipizide 10 mg 07/14/19 10:30 07/17/19 11:50 Glucotrol PO Not Given DAILY [facility] Glucagon 1 mg 07/14/19 00:00 Glucagon For Inj IM PRN PRN Hypoglycemia Protocol Glucose 15 gm 07/14/19 00:00 Glutose 15 PO PRN PRN Hypoglycemia Protocol Sodium Chloride 1,000 mls @ 75 mls/hr 07/13/19 20:55 07/17/19 09:55 Normal Saline Iv IV CONT 75 mls/hr .[id number] ONI Administration Dextrose 1,000 mls @ 100 mls/hr 07/14/19 00:00 Dextrose 5% 1,000 Ml IVPB PRN PRN Hypoglycemia Protocol Insulin Aspart 4 - 8 units 07/14/19 08:00 07/17/19 10:48 Novolog SUB-Q Not Given TIDWM ONI Protocol Lisinopril 40 mg 07/14/19 10:30 07/17/19 06:04 Prinivil PO 40 mg DAILY ONI Administration Magnesiu
[2019-07-17] MEDS: PANTOPRAZOLE SODIUM IV 40 MG VIAL IV PUSH (13:41)
[2019-07-17] MEDS: PROMETHAZINE HCL 25 MG/ML AMPUL 12.5 MG IV PUSH (13:43)
[2019-07-17 14:19] LABS: Glucose Point of Care 180 (65-105)
[2019-07-17] MEDS: FUROSEMIDE INJ 40 MG/4 ML VIAL IV PUSH (16:47)
[2019-07-17] MEDS: FERROUS SULFATE 324 MG TABLET PO (16:49)
[2019-07-17 17:50] LABS: Glucose Point of Care 194 (65-105)
[2019-07-17 19:15] LABS: Add Urine Microscopic? YES; Appearance Urine Clear (Clear); Bilirubin Urine Negative (Negative); Blood Urine Negative (Negative); Color Urine Colorless (Yellow); Glucose Urine UA 2+ mg/dL (Negative); Ketones Urine Negative (Negative); Leukocyte Esterase Ur Negative LEU/UL (Negative); Nitrate Urine Negative (Negative); Protein Urine Negative (Negative); RBC Urine 0-2 /hpf (0-2); Specific Grav Ur 1.012 (1.001-1.035); Squamous Epithelial Cell Urine Occasional /hpf (Few); Urobilinogen Urine Negative mg/dL (<2.0); WBC Urine 0-3 /hpf
[2019-07-17] MEDS: ALBUTEROL SULFATE NEB 2.5 MG/0.5 ML INH INHALATION (20:52)
[2019-07-17] MEDS: MAGNESIUM OXIDE 200 MG TABLET PO (22:39)
[2019-07-17] MEDS: ACETAMINOPHEN 325 MG TABLET 650 MG PO (22:39)
[2019-07-18] VITALS (16 sets, daily range): BP systolic 144–155; BP diastolic 64–72; PULSE 68–97; RESP 14–22; TEMP 36–36.8; O2SAT 91–100
[2019-07-18] MEDS: ALBUTEROL SULFATE NEB 2.5 MG/0.5 ML INH INHALATION ×4 (01:41→18:58)
[2019-07-18 05:46] LABS: Hematocrit 27.3 % (37.0-47.0); Hemoglobin 8.2 g/dL (12.0-15.0); Mean Corpuscular Hemoglobin 25.2 pg (26-34); Mean Corpuscular Volume 83.7 fl (80-100); Mean Platelet Volume 10.2 fl (7.4-10.4); Platelet Count Result 279 k/mm3 (150-375); Red Blood Count 3.26 M/mm3 (4.2-5.4); Red Cell Distribution Width 15.6 % (11.5-14.5); White Blood Count 6.8 K/mm3 (4.5-10.0)
[2019-07-18 05:53] LABS: Lipase 126 U/L (23-300)
[2019-07-18 08:57] LABS: Glucose Point of Care 163 (65-105)
[2019-07-18] MEDS: ACETAMINOPHEN 325 MG TABLET 650 MG PO ×2 (09:28→19:31)
[2019-07-18] MEDS: DIPHENHYDRAMINE 1%/ZINC 0.1% CREAM 30 GM TUBE 1 APPLIC TOPICAL (09:30)
[2019-07-18] MEDS: ESCITALOPRAM OXALATE 10 MG TABLET PO (09:32)
[2019-07-18] MEDS: FERROUS SULFATE 324 MG TABLET PO ×2 (09:32→16:15)
[2019-07-18] MEDS: FUROSEMIDE INJ 40 MG/4 ML VIAL IV PUSH (09:32)
[2019-07-18] MEDS: MAGNESIUM OXIDE 200 MG TABLET PO ×2 (09:33→21:09)
[2019-07-18] MEDS: PANTOPRAZOLE SODIUM IV 40 MG VIAL IV PUSH (09:33)
[2019-07-18] MEDS: lisinopriL 20 MG TABLET 40 MG PO (09:33)
[2019-07-18] MEDS: METOPROLOL SUCCINATE EXT REL 50 MG TABCR PO (09:34)
--- NOTE | 2019-07-18 10:30 | PM.GYNPNOP ---
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 The wound was repacked today. It is healing well. There is no sign of infection. Continue to pack this would be ideal. Not packing and likely created the current situation. Previously there was a defect in the same spot that was not packed properly due to availability of the patient. The same issue has arisen during this stay. The patient is going to continue as an inpatient. No outpatient options are viable. This could easily be done as an outpatient. Time Spent With Patient Time: Total time spent is greater than 50% in coordination of care (as documented) at patient's floor/unit and/or counseling patient: Time with patient: 15 - 25 minutes STORE PROTECTION SPECIALIST- PN:Subj Post-Op Subjective Date/time seen: 07/18/19 10:30 Interval history: Wound repacked today. Old dressing was removed. The wound is very shallow now. It is difficult to fit a Q-tip into the skin opening. Otherwise the wound is intact. The patient has minimal pain at the site. Exam Const: General: healthy appearing, comfortable and no acute distress Resp: Auscultation: clear to auscultation bilaterally, no rales, no rhonchi and no wheezes Cardio: Rate: regular rate Heart sounds: no click, no murmurs and no rubs GI: Inspection: non-distended GI Palp: No abdominal tenderness Auscultation: normal bowel sounds Other: 1 cm open area in the right 3rd of the incision site. This was a defect was created with the scalpel. The abscess defect is shallower. It is 3 cm approximately. It was repacked today. Extrem: General: normal to inspection, no pedal edema and no calf tenderness STORE PROTECTION SPECIALIST - PN: Obj Data Vital Signs Vital Signs: Vital Signs - 24 hr 07/17/19 14:00 07/17/19 20:40 07/17/19 21:00 Temperature 96.9 F L Pulse Rate 90 83 87 Respiratory Rate 18 18 20 Blood Pressure 156/81 H Pulse Oximetry 07/17/19 21:57 07/17/19 22:40 07/18/19 01:43 Temperature 98.0 F Pulse Rate 83 83 79 Respiratory Rate 20 20 20 Blood Pressure 164/72 H Pulse Oximetry 97 97 07/18/19 01:51 07/18/19 06:00 07/18/19 08:44 Temperature 96.8 F L Pulse Rate 79 71 72 Respiratory Rate 20 14 16 Blood Pressure 144/71 H Pulse Oximetry 98 94 07/18/19 08:54 07/18/19 09:34 07/18/19 09:40 Temperature Pulse Rate 75 71 71 Respiratory Rate 16 Blood Pressure 153/64 H Pulse Oximetry Intake/Output Intake/Output: Intake & Output 07/15/19 07/16/19 07/17/19 07/18/19 23:59 23:59 23:59 23:59 Intake Total 4080 3820 2223 250 Output Total 1700 2300 4400 950 Balance 2380 6676 -7372 -560 Meds/Results Medications: Active Medications Generic Name Dose Route Start Last Admin Trade Name Freq PRN Reason Stop Dose Admin Acetaminophen 650 mg 07/17/19 22:26 07/18/19 09:28 Tylenol Tablet PO 650 mg Q4H PRN Administration Mild Pain (1-3) Albuterol 2.5 mg 07/17/19 20:00 07/18/19 08:43 Albuterol Sulf Neb 2.5mg/0.5ml INHALATION 2.5 mg Q6HRT ONI Administration Atorvastatin Calcium 10 mg 07/14/19 10:30 07/17/19 12:15 Lipitor PO Not Given DAILY ONI Dextrose 12.5 gm 07/14/19 00:00 Dextrose 50% Syringe IV PUSH PRN PRN Hypoglycemia Protocol Diphenhydramine HCl 25 mg 07/15/19 09:14 07/15/19 23:20 Benadryl Cap PO 25 mg Q6H PRN Administration Itching Escitalopram Oxalate 10 mg 07/14/19 10:30 07/18/19 09:32 Lexapro PO 10 mg DAILY ONI Administration Famotidine 20 mg 07/14/19 09:00 07/17/19 12:15 Pepcid PO Not Given Q12HR ONI Ferrous Sulfate 324 mg 07/14/19 17:00 07/18/19 09:32 Ferrous Sulfate PO 324 mg BID ONI Administration Furosemide 40 mg 07/18/19 09:00 07/18/19 09:32 Lasix Inj IV PUSH 40 mg DAILY ONI Admi
--- NOTE | 2019-07-18 11:39 | WPDCDIQUERY2 ---
CDI Query Clarification Request Acute pancreatitis has been documented by EDP and Dr Jansen. Hospitalists have documented elevated lipase , and RUQ ultrasound and abd CT shows no pancreatic abnormalities in the last few days. She has had a hx of idopathic pancreatitis in the past. Please clarify if acute pancreatitis was ruled in or ruled out.
--- NOTE | 2019-07-18 11:51 | PC.NURSE ---
Patient voiced that her minced and moist breakfast caused no problems.
[2019-07-18] MEDS: INSULIN ASPART (*BKC) 100 UNITS/ML SUB-Q ×2 (12:22→16:34)
[2019-07-18 13:10] LABS: Glucose Point of Care 205 (65-105)
[2019-07-18] MEDS: estradioL 1 MG TABLET PO (13:47)
--- NOTE | 2019-07-18 16:46 | PC.NURSE ---
Patient unable to do her own abdominal dressing change which is packing of the wound. She attempted dressing change in the presence of the nurse and the charge nurse. She voiced that her sister can be taught to do it The sister could not come today.
[2019-07-18 16:55] LABS: Glucose Point of Care 247 (65-105)
--- NOTE | 2019-07-18 17:37 | PM.IMPN ---
Progress Note: A&P Assessment and Plan (1) Abdominal wall abscess: Code(s): L02.211 - Cutaneous abscess of abdominal wall Status: Acute Assessment and Plan: Patient underwent total abdominal hysterectomy, bilateral salpingo-oophorectomy, and adhesiolysis 06/07/[address] Jansen. She was hospitalized 06/21/19 - 06/23/19 for subcutaneous wound abscesses managed by Dr Jansen - drains were placed and she was treated with abx, discharged with Levaquin and Flagyl. She saw Dr Jansen at least once in the interim and had drains removed. She reports she stopped taking the Flagyl due to a cough. Readmitted in this setting with continued abdominal pain, nausea, vomiting which have resolved today. She completed 4 days of IV zosyn. She has agreed to do her own dressing changes at home. Anticipate possible discharge tomorrow. Her sister is also coming to learn to do the dressing changes. (2) Elevated lipase: Code(s): R74.8 - Abnormal levels of other serum enzymes Status: Acute Assessment and Plan: No abdominal pain today. Imaging shows an unremarkable pancreas. Lipase is now normal, likely elevated due to vomiting. (3) Type 2 diabetes mellitus: Code(s): E11.9 - Type 2 diabetes mellitus without complications Status: Acute Assessment and Plan: A1c 10.6 earlier this month. Blood sugars stable. Maintained on SSI for now, oral hypoglycemics are held since she was vomiting yesterday. Will monitor. (4) HTN (hypertension): Code(s): I10 - Essential (primary) hypertension Status: Chronic Assessment and Plan: Elevated but stable on home metoprolol and lisinopril. Monitor BP and adjust as needed. (5) DVT prophylaxis: Code(s): Z29.9 - Encounter for prophylactic measures, unspecified Status: Acute Assessment and Plan: SCDs Subjective Date/time seen: 07/18/19 1445 Interval history: Ms. Gordon is a 43yo F admitted with recurring abdominal wall abscess after hysterectomy. She reports feeling tired today but otherwise feels well. She denies any nausea, vomiting, or abdominal pain. She reports minimal tenderness when Dr Jansen changed her packing earlier. Her shortness of breath from yesterday has improved. No chest pain or calf tenderness. She has agreed to doing her own dressing changes at home and is anticipating possible discharge tomorrow. Review of Systems Review of Systems: Narrative: Twelve systems were reviewed with pertinent positives and negatives as per HPI. Exam Narrative: Exam Narrative: General: Overweight patient resting comfortably in bed in no acute distress. HEENT: Normocephalic, atraumatic, EOMI. Neck: Supple. Neuro: No focal neurological deficits noted. Speech is clear. CV: Rate and rhythm are regular. Resp: Slight crackles heard at left base. Respirations even and nonlabored. Abd: Soft, non distended, nontender. Abscess site with gauze covering. Bowel sounds present. Extremities: No swelling, erythema, or pain to palpation. Objective Data Vital Signs Vital Signs: Last Vital Signs Temp 98.2 F 07/18/19 14:00 Pulse 80 07/18/19 15:31 Resp 16 07/18/19 15:31 BP 155/72 H 07/18/19 14:00 Pulse Ox 100 07/18/19 14:00 Intake/Output Intake/Output: Intake & Output 07/15/19 07/16/19 07/17/19 07/18/19 23:59 23:59 23:59 23:59 Intake Total 4080 3820 2223 490 Output Total 1700 2300 4400 950 Balance 2380 1520 -2177 -868 Meds/Results Medications: Active Medications Generic Name Dose Route Start Last Admin Trade Name Freq PRN Reason Stop Dose Admin Acetaminophen 650 mg 07/17/19 22:26 07/18/19 09:28 Tylenol Tablet PO 650 mg Q4H PRN Administration Mild Pain (1-3) Albuterol 2.5 mg 07/17/19 20:00 07/18/19 15:13 Albuterol Sulf Neb 2.5mg/0.5ml INHALATION 2.5 mg Q6HRT ONI Administration
[2019-07-18 21:15] LABS: Glucose Point of Care 218 (65-105)
[2019-07-19] VITALS (7 sets, daily range): BP systolic 135–156; BP diastolic 69–82; PULSE 68–91; RESP 16–22; TEMP 36.5–36.6; O2SAT 92–100
[2019-07-19] MEDS: ACETAMINOPHEN 325 MG TABLET 650 MG PO ×2 (06:26→09:41)
[2019-07-19 06:49] LABS: Blood Urea Nitrogen 4 mg/dL (7-17); Calcium 8.8 mg/dL (8.4-10.2); Carbon Dioxide 28 mmol/L (22-30); Chloride 101 mmol/L (98-107); Estimated CRCL calculation 90 ml/min; Estimated Glomerular Filt Rate > 60; Glucose 212 mg/dL (65-105); Magnesium 1.6 mg/dL (1.6-2.3); Phosphorus 4.3 mg/dL (2.5-4.5); Potassium 3.8 mmol/L (3.4-5.0); Sodium 138 mmol/L (137-145)
[2019-07-19] MEDS: ALBUTEROL SULFATE NEB 2.5 MG/0.5 ML INH INHALATION ×2 (08:52→14:31)
[2019-07-19] MEDS: MAGNESIUM OXIDE 200 MG TABLET PO (09:29)
[2019-07-19] MEDS: METOPROLOL SUCCINATE EXT REL 50 MG TABCR PO (09:29)
[2019-07-19] MEDS: FERROUS SULFATE 324 MG TABLET PO ×2 (09:29→16:54)
[2019-07-19] MEDS: FUROSEMIDE INJ 40 MG/4 ML VIAL IV PUSH (09:30)
[2019-07-19] MEDS: ESCITALOPRAM OXALATE 10 MG TABLET PO (09:30)
[2019-07-19] MEDS: PANTOPRAZOLE SODIUM IV 40 MG VIAL IV PUSH (09:30)
[2019-07-19] MEDS: lisinopriL 20 MG TABLET 40 MG PO (09:30)
[2019-07-19] MEDS: estradioL 1 MG TABLET PO (09:30)
[2019-07-19 09:48] LABS: Glucose Point of Care 197 (65-105)
[2019-07-19] MEDS: PROMETHAZINE HCL 25 MG/ML AMPUL 12.5 MG IV PUSH (10:12)
[2019-07-19] MEDS: MAGNESIUM SULF 2 GM/WATER 50ML 2 GM/50 ML BAG IVPB (11:20)
[2019-07-19 14:58] LABS: Glucose Point of Care 317 (65-105)
[2019-07-19] MEDS: INSULIN ASPART (*BKC) 100 UNITS/ML SUB-Q (15:02)
--- NOTE | 2019-07-19 22:17 | PM.DS ---
DS: Diagnosis Admitting Diagnosis Admitting Diagnosis: Cutaneous abscess of abdominal wall Discharge Diagnosis (1) Abdominal wall abscess: Code(s): L02.211 - Cutaneous abscess of abdominal wall Status: Acute Assessment and Plan: Date of Service 07/19/19: Ms Gordon is a 43yo F with history of hypertension, type 2 diabetes mellitus who presented to the ED for evaluation of abdominal pain, nausea, vomiting. This is her 3rd admission in 2 months. She recently underwent hysterectomy by Dr Jansen and has returned twice with abdominal wall abscesses related to her incision site. She is noted to be a poor historian regarding recent events and admitted she stopped taking one of the antibiotics she was prescribed. She was again seen by Dr Jansen who performed bedside I&D of this abscess. She completed 4 days of IV zosyn. Her dressing was changed daily and packed with iodoform gauze. Initially, patient did not feel she could perform her daily dressing changes at home and reported she did not have any family or friends to help her, requesting NH placement for daily dressing changes. Patient was encouraged to learn how to do the wound care and her sister also came for dressing change teaching and it was felt that she was appropriate for discharge home. She continued to have some nausea and vomiting and was treated with antiemetics and bowel rest. Her lipase was elevated but no pancreatic abnormalities correlated on CT. It was felt that her lipase was elevated due to acute vomiting rather than a diagnosis of pancreatitis. She was noted to be hypoxic during the stay and CXR showed pulmonary edema, likely secondary to IV fluid overload. She was treated with lasix and improved, tolerating room air day of discharge. She was hemodynamically stable for discharge with plans to follow up with Dr Jansen and PCP. Patient underwent total abdominal hysterectomy, bilateral salpingo-oophorectomy, and adhesiolysis 06/07/[address] Jansen. She was hospitalized 06/21/19 - 06/23/19 for subcutaneous wound abscesses managed by Dr Jansen - drains were placed and she was treated with abx, discharged with Levaquin and Flagyl. She saw Dr Jansen at least once in the interim and had drains removed. She reports she stopped taking the Flagyl due to a cough. Readmitted in this setting with continued abdominal pain, nausea, vomiting which have resolved prior to discharge. She completed 4 days of IV zosyn. She has agreed to do her own dressing changes at home. (2) Elevated lipase: Code(s): R74.8 - Abnormal levels of other serum enzymes Status: Acute Assessment and Plan: No abdominal pain today. Imaging shows an unremarkable pancreas. Lipase is now normal, likely elevated due to vomiting, not pancreatitis. (3) Type 2 diabetes mellitus: Code(s): E11.9 - Type 2 diabetes mellitus without complications Status: Acute Assessment and Plan: A1c 10.6 earlier this month. Blood sugars stable. Maintained on SSI for now. Resume oral hypoglycemics at discharge. (4) HTN (hypertension): Code(s): I10 - Essential (primary) hypertension Status: Chronic Assessment and Plan: Maintained on home metoprolol and lisinopril. (5) DVT prophylaxis: Code(s): Z29.9 - Encounter for prophylactic measures, unspecified Status: Acute Assessment and Plan: SCDs DS: Summary Time Spent with Patient Time attestation: Total time spent providing and/or coordinating discharge services: 35 minutes Exam Narrative: Exam Narrative: General: Overweight patient resting comfortably in bed in no acute distress. HEENT: Normocephalic, atraumatic, EOMI. Neck: Supple. Neuro: No focal neurological deficits noted. Speech is clear. CV: Rate and rhythm are regular. Resp: CTA. Respirations even and nonlabored. Abd: Soft, non disten
== END 2019-07-19 17:05 | disposition home or self-care (01) | DRG 711 ==
LOC: ANHED 18:10 → ANH3MED 18:54
PROVIDERS: Emergency Medicine; Physician Assistant; Admitting Provider Internal Medicine; Emergency Provider Emergency Medicine; PCP Family Medicine; Visit Provider Physician Assistant
DX: T81.41XA Infection following a procedure, superficial incisional surgical site, initial encounter (principal); L02.211 Cutaneous abscess of abdominal wall; I10 Essential (primary) hypertension; E11.9 Type 2 diabetes mellitus without complications; K21.9 Gastro-esophageal reflux disease without esophagitis; M19.90 Unspecified osteoarthritis, unspecified site; F41.9 Anxiety disorder, unspecified; E78.00 Pure hypercholesterolemia, unspecified; R74.8 Abnormal levels of other serum enzymes; E66.9 Obesity, unspecified; Z68.35 Body mass index [BMI] 35.0-35.9, adult; Z90.710 Acquired absence of both cervix and uterus; Z90.722 Acquired absence of ovaries, bilateral
CPT/HCPCS: 36415; 71046; 71275; 72133; 74176; 74177; 76705; 80048; 80053; 81001; 83605; 83690; 83735; 84100; 85014; 85018; 85025; 85027; 87086; 87088; 94640; 96361; 96374; 99285; A9270; C9113; J0131; J1815; J1940; J2405; J2543; J2550; J3475; J7030; J7120; Q9967

== ENCOUNTER 2021-01-10 08:06 | Outpatient (CLI) | payer BC, SELFPAY ==
--- NOTE | 2021-01-10 17:20 | WPDPFTINT ---
PFT Procedure Performed PFT Procedure Performed Spirometry with Pre/Post Bronchodilator Plethysmography (Lung Vol) Diffusing Cap (DLCO) Flow Vol Loop PFT Interpretation This is a pulmonary function test with pre and post-bronchodilator spirometry, plethysmography and diffusing capacity. The test was performed and results interpreted in accordance with the 2019 and 2005 ATS/ERS Task Force guidelines respectively using the Global Lung Function Initiative-2012 reference equations. Patient demonstrated good effort and cooperation. Reproducibility criteria were met. The quality of the pre bronchodilator spirometry maneuver was Grade A and post bronchodilator spirometry maneuver was Grade A. Findings: Spirometry: the contour of the inspiratory and expiratory flow tracing are normal. The pre bronchodilator FVC is 2.65 L, 81% predicted. The pre bronchodilator FEV1 is 2.18 L, 82% predicted. The FEV1: FVC ratio is 82%. The post bronchodilator FVC is 2.62 L, representing 1% decrease. The post bronchodilator FEV1 is 2.23 L, representing a 2% increase. Plethysmography: The total lung capacity is 4.83 L, 102% predicted. The functional residual capacity is 2.44, 93% predicted. The residual volume is 1.77 L, 111% predicted. Diffusing capacity: The absolute diffusion capacity is 15.9, 71% predicted. The diffusing capacity corrected for alveolar volume is 4.57, 96% predicted. Impression: The spirometry is normal without evidence of an obstructive abnormality. There is no significant improvement after inhaling a single dose of albuterol. The lung volumes are normal. The diffusing capacity is normal. There are no prior studies for comparison
== END 2021-01-10 08:07 | disposition home or self-care (01) ==
PROVIDERS: PCP Family Medicine; Visit Provider Nurse Practitioner
DX: R06.02 Shortness of breath (principal)
CPT/HCPCS: 94060; 94726; 94729

== ENCOUNTER 2021-01-14 08:29 | Emergency (ER) | payer BC, SELFPAY ==
--- NOTE | ~2021-01-14 | US_ITS ---
EXAMINATION: US venous doppler [facility] DATE: 01/14/2021 09:42 INDICATION: Left upper limb pain TECHNIQUE: Grayscale images without and with compression and Doppler images of the bilateral upper ex tremity veins were obtained. COMPARISON: None. FINDINGS: The left internal jugular vein, subclavian vein, axillary vein, brachial vein, basilic vein, cephalic vein, radial vein, and ulnar vein are patent. IMPRESSION: 1. Patent left upper extremity veins. No evidence of venous thrombosis. Reviewed, dictated and finalized at location A.
[2021-01-14 09:55] VITALS: BP 161/78; PULSE 83; RESP 18; TEMP 36.6; O2SAT 99
[2021-01-14] MEDS: KETOROLAC (*BKC) 60 MG/2 ML VIAL IM (10:00)
--- NOTE | 2021-01-14 10:19 | ED.GENADULT ---
HPI - General Adult General Chief complaint: Extremity Problem,Nontraumatic Stated complaint: bilateral wrist pain Time Seen by Provider: 01/14/21 09:04 Source: patient, family and RN notes reviewed Mode of arrival: ambulatory Limitations: no limitations History of Present Illness HPI narrative: Patient is a 45-year-old female who presents to emergency department for evaluation of bilateral upper extremity pain has had this pain chronically notes history of carpal tunnel. Denies injury or trauma. Patient has not taken anything for her symptoms. Patient notes fullness and tenderness to the left bicep which is new Related Data Home Medications Medication Instructions Recorded Confirmed alogliptin 25 mg PO DAILY 06/01/19 07/13/19 atorvastatin 10 mg PO DAILY 06/01/19 07/13/19 escitalopram oxalate 10 mg PO DAILY 06/01/19 07/13/19 fenofibrate 54 mg PO DAILY 06/01/19 07/13/19 glipizide 10 mg PO BID 06/01/19 07/17/19 lisinopril 40 mg PO DAILY 06/01/19 07/13/19 metformin 1,000 mg PO BID 06/01/19 07/13/19 metoprolol succinate 50 mg PO DAILY 06/01/19 07/13/19 ferrous sulfate 325 mg PO BID 06/21/19 07/13/19 ibuprofen 800 mg PO Q6H 06/21/19 07/13/19 cetirizine 10 mg PO DAILY 07/17/19 07/17/19 estradiol 1 mg PO DAILY 07/17/19 07/17/19 Allergies Allergy/AdvReac Type Severity Reaction Status Date / Time latex Allergy Unknown Rash Verified 01/14/21 10:00 adhesive tape AdvReac Intermediate Itching Verified 01/14/21 10:00 morphine AdvReac Itching Verified 01/14/21 10:00 Review of Systems Review of Systems: All systems reviewed & are unremarkable except as noted in HPI and below PMFSH Past Medical History Medical History Anxiety Arthritis Chronic GERD Fibroids HTN (hypertension) Hypercholesterolemia Obesity Type 2 diabetes mellitus Recent hemoglobin A1c was 11.0. Surgical History Surgical History S/P total abdominal hysterectomy and bilateral salpingo-oophorectomy Complicated by postoperative abdominal wall abscesses requiring drain placement. Family History Family History Father Malignant neoplasm of prostate Hypertension Mother Diabetes mellitus Hypertension Sibling Hypertension Social History Social History Social History: The patient lives alone in [place]. She works at a local [employer]. She has no children. Her primary care provider is Dr. Brad Ortega. She designates her sister Jessee as her emergency contact. She is a full code. Smoking status: Never smoker Alcohol intake: never Substance use: never Gender identity (if verbalized by the patient): Female Spiritual care concerns: No Agree to blood products: Yes Exam Narrative: Exam Narrative: GENERAL: Well-appearing, well-nourished, and in no acute distress. HEAD: Normocephalic, atraumatic. EYES: PERRLA and EOMI. ENT: Nares clear, no rhinorrhea or epistaxis. Mucous membranes moist. CHEST: Clear to auscultation. No respiratory distress. No wheezes rales or rhonchi HEART: Regular rate and rhythm. No murmur heard. Normal peripheral pulses. EXTREMITIES: Normal range of motion. No edema. Tenderness of the wrist and elbow joints no deformity noted tenderness to palpation of the left bicep no deformity noted SKIN: Warm, dry, no rash. NEURO: No focal deficits. Alert and oriented x3. Neurovascularly intact. Capillary refill less than 2 seconds PSYCH: Normal mood and affect. Course Course Emergency Course: Patient in the room no distress aware of case findings treatment plan and diagnosis agreeing to follow-up as instructed Vital Signs Vital signs: Vital Signs Temperature 98 F 01/14/21 09:55 Pulse Rate 83 01/14/21 09:55 Respiratory Rate 18 01/14/21 09:55 Blood Pressure 161/78 H 01/14/21 09:55 P
== END 2021-01-14 10:41 | disposition home or self-care (01) ==
PROVIDERS: Emergency Provider Emergency Medicine Emergency Medical Services; PCP Family Medicine
DX: M79.602 Pain in left arm (principal); M79.601 Pain in right arm; E11.9 Type 2 diabetes mellitus without complications; I10 Essential (primary) hypertension; E78.00 Pure hypercholesterolemia, unspecified; M19.90 Unspecified osteoarthritis, unspecified site; K21.9 Gastro-esophageal reflux disease without esophagitis; E66.9 Obesity, unspecified; Z68.36 Body mass index [BMI] 36.0-36.9, adult; F41.9 Anxiety disorder, unspecified; Z79.4 Long term (current) use of insulin
CPT/HCPCS: 93971; 96372; 99284; J1885

== ENCOUNTER → 2021-02-15 06:50 | Outpatient (CLI) | payer BC, SELFPAY ==
[2021-02-15 18:26] LABS: SARS-CoV-2 RNA PCR Negative
== END ==
PROVIDERS: PCP Family Medicine; Visit Provider Family Medicine
DX: R68.89 Other general symptoms and signs (principal); Z20.822 Contact with and (suspected) exposure to COVID-19
CPT/HCPCS: C9803; U0003; U0005

== ENCOUNTER 2021-03-21 11:02 | Emergency (ER) | payer BC, SELFPAY ==
--- NOTE | ~2021-03-21 | CT_ITS ---
EXAMINATION: CT abdomen pelvis w con INDICATION: Upper abdominal pain TECHNIQUE: Computed tomographic images of the abdomen and pelvis were obtained after the administrati on of 100 cc of Omnipaque 350 intravenous contrast. The dose-length product (DLP) was 1084.89 mGy-cm. Automated exposure control and iterative reconstruction technique were employed. COMPARISON: 07/16/2019 FINDINGS: The lung bases are clear. The heart size is normal. The liver is diffusely low in attenuati on when compared with the spleen, consistent with hepatic steatosis. The spleen, pancreas, and adrena l glands are normal. A stone is present in the nondistended gallbladder. The kidneys are unremarkable . Calcified atherosclerosis is noted. No pathologically enlarged abdominal or pelvic lymph nodes are identified. There is no free intraperitoneal gas or evidence of bowel obstruction. The appendix is no rmal. There is mild circumferential wall thickening of the urinary bladder. Changes of hysterectomy a re noted. IMPRESSION: 1. Mild circumferential wall thickening of the urinary bladder, consistent with cystitis. Reviewed, dictated and finalized at location A.
[2021-03-21 11:08] VITALS: BP 178/99; PULSE 84; RESP 15; TEMP 36.5; O2SAT 97
[2021-03-21 11:43] LABS: Basophils Absolute Auto 0.1 K/mm3 (0.0-0.1); Basophils Percent Auto 0.8 % (0.2-1.2); Eosinophils Absolute Auto 0.3 K/mm3 (0-0.3); Eosinophils Percent Auto 4.1 % (0-4.4); Hemoglobin 13.7 g/dL (12.0-15.0); Immature Granulocyte Absolute 0.02 K/mm3 (0.00-0.031); Immature Granulocyte Percent A 0.3 % (0-0.5); Lymphocytes Absolute Auto 1.87 K/mm3 (0.9-3.2); Lymphocytes Percent Auto 30.9 % (18.3-44.2); Mean Corpuscular HGB Conc 31.9 g/dl (32-36); Mean Corpuscular Hemoglobin 28.4 pg (26-34); Mean Corpuscular Volume 89.2 fl (80-100); Monocytes Absolute Auto 0.4 K/mm3 (0.1-0.6); Monocytes Percent Auto 7.3 % (2.6-8.5); Neutrophils Absolute Auto 3.4 K/mm3 (1.3-6.7); Neutrophils Percent Auto 56.6 % (45.5-73.1); Platelet Count Result 270 k/mm3 (150-375); Red Blood Count 4.82 M/mm3 (4.2-5.4); Red Cell Distribution Width 13.9 % (11.5-14.5); White Blood Count 6.1 K/mm3 (4.5-10.0)
[2021-03-21 11:48] LABS: Add Urine Microscopic? YES; Appearance Urine Clear (Clear); Bilirubin Urine Negative (Negative); Blood Urine Negative (Negative); Color Urine Straw (Yellow); Glucose Urine UA 3+ mg/dL (Negative); Ketones Urine Negative (Negative); Leukocyte Esterase Ur Trace LEU/UL (Negative); Mucus Urine Rare /lpf; Nitrate Urine Negative (Negative); Protein Urine 1+ mg/dL (Negative); Squamous Epithelial Cell Urine Moderate /hpf (Few); Urobilinogen Urine Negative mg/dL (<2.0)
[2021-03-21 11:51] LABS: Alanine Aminotransferase 19 U/L (4-35); Albumin Level 4.7 g/dL (3.5-5.1); Alkaline Phosphatase 81 U/L (38-126); Anion Gap 13 mmol/L (8-16); Aspartate Amino Transferase 30 U/L (14-36); Bilirubin,Total 0.5 mg/dL (0.2-1.3); Blood Urea Nitrogen 13 mg/dL (7-17); Calcium 10.1 mg/dL (8.4-10.2); Carbon Dioxide 24 mmol/L (22-30); Chloride 100 mmol/L (98-107); Estimated CRCL calculation 104 ml/min; Estimated Glomerular Filt Rate > 60; Glucose 268 mg/dL (65-110); Lipase 356 U/L (23-300); Potassium 4.2 mmol/L (3.4-5.0); Sodium 137 mmol/L (137-145)
--- NOTE | 2021-03-21 11:56 | ED.ABDPAIN ---
HPI - Abdominal Pain General Chief Complaint: Abdominal Pain Stated Complaint: ABD PAIN Time Seen by Provider: 03/21/21 11:31 Source: patient Mode of arrival: ambulatory Limitations: no limitations History of Present Illness HPI narrative: This is a 45 year old female that presents to the ER for abdominal pain over the last couple of weeks. Reports history of pancreatitis and states this pain feels similar. The pain is in the mid to upper abdomen and sharp in nature. Also reports dysuria. Denies fever, vomiting, diarrhea, or hematuria. Related Data Home Medications Medication Instructions Recorded Confirmed alogliptin 25 mg PO DAILY 06/01/19 07/13/19 atorvastatin 10 mg PO DAILY 06/01/19 07/13/19 escitalopram oxalate 10 mg PO DAILY 06/01/19 07/13/19 fenofibrate 54 mg PO DAILY 06/01/19 07/13/19 glipizide 10 mg PO BID 06/01/19 07/17/19 lisinopril 40 mg PO DAILY 06/01/19 07/13/19 metformin 1,000 mg PO BID 06/01/19 07/13/19 metoprolol succinate 50 mg PO DAILY 06/01/19 07/13/19 ferrous sulfate 325 mg PO BID 06/21/19 07/13/19 ibuprofen 800 mg PO Q6H 06/21/19 07/13/19 cetirizine 10 mg PO DAILY 07/17/19 07/17/19 estradiol 1 mg PO DAILY 07/17/19 07/17/19 Allergies Allergy/AdvReac Type Severity Reaction Status Date / Time latex Allergy Unknown Rash Verified 03/21/21 11:11 adhesive tape AdvReac Intermediate Itching Verified 03/21/21 11:11 morphine AdvReac Itching Verified 03/21/21 11:11 Review of Systems Review of Systems: CONSTITUTIONAL: Denies fever CARDIOVASCULAR: Denies chest pain RESPIRATORY: Denies dyspnea. GASTROINTESTINAL: Reports abdominal pain, nausea. Denies vomiting, or diarrhea. GENITOURINARY: Denies dysuria or hematuria. All systems reviewed & are unremarkable except as noted in HPI and below PMFSH Past Medical History Medical History Anxiety Arthritis Chronic GERD Fibroids HTN (hypertension) Hypercholesterolemia Obesity Type 2 diabetes mellitus Recent hemoglobin A1c was 11.0. Surgical History Surgical History S/P total abdominal hysterectomy and bilateral salpingo-oophorectomy Complicated by postoperative abdominal wall abscesses requiring drain placement. Family History Family History Father Malignant neoplasm of prostate Hypertension Mother Diabetes mellitus Hypertension Sibling Hypertension Social History Social History Social History: The patient lives alone in [place]. She works at a local [employer]. She has no children. Her primary care provider is Dr. Brad Ortega. She designates her sister Jessee as her emergency contact. She is a full code. Smoking status: Never smoker Alcohol intake: never Substance use: never Gender identity (if verbalized by the patient): Female Spiritual care concerns: No Agree to blood products: Yes Exam Narrative: GENERAL: Well-appearing, obese, and in no acute distress. HEAD: Normocephalic, atraumatic. EYES: EOMI. CHEST: Clear to auscultation. No respiratory distress. No wheezes rales or rhonchi HEART: Regular rate and rhythm. No murmur heard. Normal peripheral pulses. ABDOMEN: Soft, nondistended, normal active bowel sounds. Tender to palpation in the epigastrium, without guarding. Bilateral CVA tenderness EXTREMITIES: Normal range of motion. No edema. SKIN: Warm, dry, no rash. NEURO: No focal deficits. Alert and oriented x3. PSYCH: Normal mood and affect Course Vital Signs Vital signs: Vital Signs Temperature 97.7 F 03/21/21 11:08 Pulse Rate 84 03/21/21 11:08 Respiratory Rate 15 03/21/21 11:08 Blood Pressure 178/99 H 03/21/21 11:08 Pulse Oximetry 97 03/21/21 11:08 Temperature 97.7 F 03/21/21 11:08 Pulse Rate 84 03/21/21 11:08 Respiratory Rate 15 03/21/21 11:08
[2021-03-21 12:16] LABS: Specific Grav Ur 1.032 (1.001-1.035)
[2021-03-21] MEDS: SODIUM CHLORIDE 0.9% IV 1,000 ML 999 ML IV CONT (12:30)
[2021-03-21] MEDS: ONDANSETRON INJ 4 MG/2 ML VIAL IV PUSH (12:30)
[2021-03-21] MEDS: fentaNYL CITRATE INJ (*CRX) 100 MCG/2 ML VIAL 50 MCG IV PUSH (12:31)
[2021-03-21 15:15] VITALS: BP 152/82; PULSE 82; RESP 16
== END 2021-03-21 15:15 | disposition home or self-care (01) ==
PROVIDERS: Emergency Provider Emergency Medicine; PCP Family Medicine
DX: N12 Tubulo-interstitial nephritis, not specified as acute or chronic (principal); E11.9 Type 2 diabetes mellitus without complications; E78.00 Pure hypercholesterolemia, unspecified; I10 Essential (primary) hypertension; M19.90 Unspecified osteoarthritis, unspecified site; K21.9 Gastro-esophageal reflux disease without esophagitis; F41.9 Anxiety disorder, unspecified; E66.9 Obesity, unspecified; Z68.38 Body mass index [BMI] 38.0-38.9, adult; Z79.84 Long term (current) use of oral hypoglycemic drugs
CPT/HCPCS: 36415; 74177; 80053; 81001; 83690; 85025; 87086; 96365; 96367; 96375; 99284; J0131; J0696; J2405; J3010; J7030; Q9967

== ENCOUNTER 2021-06-11 23:20 | Emergency (ER) | payer BC, SELFPAY ==
--- NOTE | ~2021-06-11 | CT_ITS ---
EXAMINATION: CT abdomen pelvis w con INDICATION: Epigastric pain TECHNIQUE: Computed tomographic images of the abdomen and pelvis were obtained after the administrati on of 100 cc of Omnipaque 350 intravenous contrast. The dose-length product (DLP) was 1291.67 mGy-cm. Automated exposure control and iterative reconstruction technique were employed. COMPARISON: 03/21/2021 FINDINGS: The lung bases are clear. The heart size is normal. The liver is diffusely low in attenuati on when compared with the spleen, consistent with hepatic steatosis. The spleen, pancreas, and adrena l glands are normal. A stone is present in the nondistended gallbladder. The kidneys are unremarkable . No pathologically enlarged abdominal or pelvic lymph nodes are identified. There is no free intrape ritoneal gas or evidence of bowel obstruction. There is calcified atherosclerosis of the aorta and ma ny of the other arteries. There appears to be mild circumferential wall thickening of the urinary armida dder. Changes of hysterectomy are again noted. IMPRESSION: 1. No CT correlate for epigastric pain. 2. Wall thickening of the urinary bladder which could reflect cystitis. Reviewed, dictated and finalized at location A. X FASHIONS DESIGNER
[2021-06-11 23:40] VITALS: BP 174/86; PULSE 91; RESP 18; TEMP 37.2; O2SAT 99
--- NOTE | 2021-06-12 00:06 | ECG_ITS ---
Measurements Intervals [place] Rate: 90 P: 44 LA: 145 QRS: 47 QRSD: 77 T: 54 QT: 359 QTc: 439 Interpretive Statements SINUS RHYTHM NONSPECIFIC T-WAVE ABNORMALITY- INF/LAT LEADS BORDERLINE ECG Electronically Signed On 06-12-2021 15:03:04 PROMOTIONAL MODEL by Eduard Herrera D.O.
[2021-06-12 00:29] LABS: Basophils Percent Auto 0.7 % (0.2-1.2); Eosinophils Absolute Auto 0.2 K/mm3 (0-0.3); Eosinophils Percent Auto 3.3 % (0-4.4); Hematocrit 40.1 % (37.0-47.0); Immature Granulocyte Absolute 0.03 K/mm3 (0.00-0.031); Immature Granulocyte Percent A 0.5 % (0-0.5); Lymphocytes Absolute Auto 1.99 K/mm3 (0.9-3.2); Lymphocytes Percent Auto 34.9 % (18.3-44.2); Mean Corpuscular HGB Conc 32.4 g/dl (32-36); Mean Corpuscular Hemoglobin 28.2 pg (26-34); Mean Platelet Volume 9.9 fl (7.4-10.4); Monocytes Absolute Auto 0.3 K/mm3 (0.1-0.6); Neutrophils Absolute Auto 3.1 K/mm3 (1.3-6.7); Neutrophils Percent Auto 54.6 % (45.5-73.1); Platelet Count Result 240 k/mm3 (150-375); Red Blood Count 4.61 M/mm3 (4.2-5.4); Red Cell Distribution Width 13.8 % (11.5-14.5); White Blood Count 5.7 K/mm3 (4.5-10.0)
[2021-06-12 00:39] LABS: Add Urine Microscopic? YES; Appearance Urine Cloudy (Clear); Bacteria Urine Trace /hpf; Bilirubin Urine Negative (Negative); Blood Urine Negative (Negative); Color Urine Yellow (Yellow); Glucose Urine UA 3+ mg/dL (Negative); Ketones Urine Negative (Negative); Leukocyte Esterase Ur Negative LEU/UL (Negative); Mucus Urine Rare /lpf; Nitrate Urine Negative (Negative); Protein Urine 1+ mg/dL (Negative); RBC Urine 0-2 /hpf (0-2); Squamous Epithelial Cell Urine Few /hpf (Few); Urobilinogen Urine Negative mg/dL (<2.0); WBC Urine 21-30 /hpf
[2021-06-12 00:48] LABS: Alanine Aminotransferase 19 U/L (4-35); Albumin Level 4.5 g/dL (3.5-5.1); Alkaline Phosphatase 74 U/L (38-126); Anion Gap 11 mmol/L (8-16); Aspartate Amino Transferase 24 U/L (14-36); Bilirubin,Total 0.3 mg/dL (0.2-1.3); Blood Urea Nitrogen 15 mg/dL (7-17); Calcium 9.3 mg/dL (8.4-10.2); Carbon Dioxide 25 mmol/L (22-30); Chloride 96 mmol/L (98-107); Estimated CRCL calculation 120 ml/min; Estimated Glomerular Filt Rate > 60; Glucose 279 mg/dL (65-110); Lipase 558 U/L (23-300); Potassium 4.1 mmol/L (3.4-5.0); Sodium 132 mmol/L (137-145)
[2021-06-12] MEDS: PANTOPRAZOLE SODIUM IV 40 MG VIAL IV PUSH (00:54)
[2021-06-12] MEDS: ONDANSETRON INJ 4 MG/2 ML VIAL IV PUSH (00:54)
[2021-06-12 00:57] LABS: Specific Grav Ur 1.031 (1.001-1.035)
[2021-06-12] MEDS: KETOROLAC 30 MG/ML VIAL (*BKC) IV PUSH (01:05)
[2021-06-12] MEDS: diphenhydrAMINE HCl INJ 50 MG/ML VIAL IV PUSH (01:09)
--- NOTE | 2021-06-12 01:18 | ED.ABDPAIN ---
HPI - Abdominal Pain General Chief Complaint: Abdominal Pain Stated Complaint: upper ABD pain with pain radiating to back Time Seen by Provider: 06/11/21 23:48 Source: patient, RN notes reviewed and old records reviewed Mode of arrival: ambulatory Limitations: no limitations History of Present Illness HPI narrative: This is a 45 year old female with history of hypertension, DM, pancreatitis who presents for evaluation of upper abdominal pain. She has been having pain intermittent for over 2 months. She was evaluated from similar pain in March, and she was diagnosed with pyelonephritis at that time. Patient has returned to ER because she has continue to have pain and she states her pain is getting worse. Her pain is sharp and it is radiating to her back . She also states it seems worse with movement and laughing. She reports nausea and chronic diarrhea. She denies fever or chills. She reports history of gallstones so she reports she is staying away from fried foods. She rates pain 10/10. Related Data Home Medications Medication Instructions Recorded Confirmed alogliptin 25 mg PO DAILY 06/01/19 07/13/19 atorvastatin 10 mg PO DAILY 06/01/19 07/13/19 escitalopram oxalate 10 mg PO DAILY 06/01/19 07/13/19 fenofibrate 54 mg PO DAILY 06/01/19 07/13/19 glipizide 10 mg PO BID 06/01/19 07/17/19 lisinopril 40 mg PO DAILY 06/01/19 07/13/19 metformin 1,000 mg PO BID 06/01/19 07/13/19 metoprolol succinate 50 mg PO DAILY 06/01/19 07/13/19 ferrous sulfate 325 mg PO BID 06/21/19 07/13/19 ibuprofen 800 mg PO Q6H 06/21/19 07/13/19 cetirizine 10 mg PO DAILY 07/17/19 07/17/19 estradiol 1 mg PO DAILY 07/17/19 07/17/19 Allergies Allergy/AdvReac Type Severity Reaction Status Date / Time latex Allergy Unknown Rash Verified 06/11/21 23:55 adhesive tape AdvReac Intermediate Itching Verified 06/11/21 23:55 morphine AdvReac Itching Verified 06/11/21 23:55 Review of Systems Review of Systems: All systems reviewed & are unremarkable except as noted in HPI and below PMFSH Past Medical History Medical History Anxiety Arthritis Chronic GERD Fibroids HTN (hypertension) Hypercholesterolemia Obesity Type 2 diabetes mellitus Recent hemoglobin A1c was 11.0. Surgical History Surgical History S/P total abdominal hysterectomy and bilateral salpingo-oophorectomy Complicated by postoperative abdominal wall abscesses requiring drain placement. Family History Family History Father Malignant neoplasm of prostate Hypertension Mother Diabetes mellitus Hypertension Sibling Hypertension Social History Social History Social History: The patient lives alone in [place]. She works at a local [employer]. She has no children. Her primary care provider is Dr. Brad Ortega. She designates her sister Jessee as her emergency contact. She is a full code. Smoking status: Never smoker Alcohol intake: never Substance use: never Gender identity (if verbalized by the patient): Female Spiritual care concerns: No Agree to blood products: Yes Exam Const: General: no acute distress and alert Nutritional Appearance: obese Orientation/consciousness: patient oriented x3 Eyes: EOM: EOMs intact bilaterally Resp: Effort & Inspection: normal respiratory effort and no retractions Auscultation: clear to auscultation bilaterally Cardio: Rate: regular rate Rhythm: regular rhythm Heart sounds: no murmurs GI: GI Palp: Yes Soft to palpation, Yes Tenderness to palpation present (GI) (diffuse), No Guarding due to palpation present (GI) and No Rigid due to palpation Auscultation: normal bowel sounds Skin: General skin exam: normal color Rashes: no rashes Neuro: General: patient oriented x3, moves all e
[2021-06-12] MEDS: LACTATED RINGERS 1,000 ML 999 ML IV CONT (01:24)
[2021-06-12] MEDS: methylPREDNISolone SOD SUCC 125 MG VIAL IV PUSH (01:26)
[2021-06-12] MEDS: FAMOTIDINE 20 MG/2 ML VIAL IV PUSH (01:26)
[2021-06-12 01:31] VITALS: BP 159/79; PULSE 79; RESP 18; O2SAT 100
[2021-06-12 02:36] VITALS: BP 149/74; PULSE 77; RESP 17; O2SAT 97
[2021-06-12] MEDS: HYDROmorphone HCL INJ (*CRX) 1 MG/ML SYR 0.5 MG IV PUSH (03:44)
[2021-06-12 04:16] VITALS: BP 155/74; PULSE 94; RESP 16; O2SAT 97
== END 2021-06-12 04:20 | disposition home or self-care (01) ==
PROVIDERS: Emergency Provider General Practice; PCP Family Medicine
DX: K80.20 Calculus of gallbladder without cholecystitis without obstruction (principal); R10.13 Epigastric pain; R74.8 Abnormal levels of other serum enzymes; E11.9 Type 2 diabetes mellitus without complications; I10 Essential (primary) hypertension; E78.00 Pure hypercholesterolemia, unspecified; E66.9 Obesity, unspecified; Z68.35 Body mass index [BMI] 35.0-35.9, adult; K21.9 Gastro-esophageal reflux disease without esophagitis; R94.31 Abnormal electrocardiogram [ECG] [EKG]
CPT/HCPCS: 36415; 74177; 80053; 81001; 81025; 83690; 85025; 87086; 87088; 93005; 96361; 96374; 96375; 99284; C9113; J1170; J1200; J1885; J2405; J2930; J7120; Q9967

== ENCOUNTER 2021-09-12 10:09 | Emergency (ER) | payer OTHER, SELFPAY ==
--- NOTE | ~2021-09-12 | CT_ITS ---
EXAMINATION: CTA chest PE protocol DATE: 09/12/2021 11:33 INDICATION: Chest pain TECHNIQUE: Computed tomography (CT) pulmonary angiogram of the chest was performed with 100 mL Omnipa que-350 intravenous contrast. Additional 3D reconstructions utilizing coronal maximum intensity proje ction (MIP) were performed. Automated exposure control and iterative reconstruction technique were em ployed. The dose-length product was 691.03 mGy-cm. COMPARISON: CT dated 07/17/2019 FINDINGS: Good contrast opacification of the pulmonary arteries. There is mild streak artifact from dense contr ast in the superior vena cava and right atrium. Mild scattered respiratory motion artifact which does not significantly limit evaluation. No pulmonary embolism. Patchy now peripheral groundglass opaciti es and consolidation scattered throughout both lungs relatively sparing the apices and would favor mu ltifocal pneumonia over pulmonary edema. No pleural effusion. Heart size is normal. No pericardial ef fusion. Thoracic aorta is normal in caliber with no dissection. No pathologically enlarged diffuse he patic steatosis. lymphadenopathy. Bones are unremarkable. IMPRESSION: 1. No pulmonary embolism. 2. Widespread scattered patchy peripheral predominant lung disease and would favor multifocal pneumon ia including COVID pneumonia over pulmonary edema. Reviewed, dictated and finalized at location A. ET PLATEMAKER IMPRESSION: 1. No pulmonary embolism. 2. Widespread scattered patchy peripheral predominant lung disease and would fa vor multifocal pneumonia including COVID pneumonia over pulmonary edema.
--- NOTE | ~2021-09-12 | CT_ITS ---
EXAMINATION: CT abdomen pelvis wo con DATE: 09/12/2021 11:41 INDICATION: Diffuse abdominal pain TECHNIQUE: Computed tomography (CT) of the abdomen and pelvis was performed without intravenous contr ast. Automated exposure control and iterative reconstruction technique were employed. The dose-length product was 1218.09 mGy-cm. COMPARISON: None FINDINGS: Patchy lung disease at the bilateral lower lungs suspicious for pneumonia. Heart size is normal. Athe rosclerotic coronary artery calcific location. No pericardial or pleural effusion. Somewhat heterogen eous pattern of diffuse hepatic steatosis. Gallbladder, spleen, pancreas, bilateral adrenal glands an d kidneys are normal. Excreted contrast is seen in the bilateral renal collecting systems, ureters an d in the bladder related to the earlier contrast-enhanced PE protocol chest CT. No urothelial irregul arities or hydronephrosis. Mild diffuse bladder wall thickening. There is diffuse wall thickening sunni ng the sigmoid colon consistent with colitis. Fluid throughout the colon consistent with diarrhea. Sm all bowel and appendix are normal. The uterus is not identified and has likely been surgically resect ed. 2 cm left adnexal cyst. IMPRESSION: 1. Diarrhea with mild wall thickening throughout the sigmoid colon consistent with colitis could be i nfectious, inflammatory or ischemic in etiology. 2. Patchy lung disease at the bilateral lower lung zones consistent with multifocal pneumonia. 3. Diffuse hepatic steatosis. 4. Mild diffuse bladder wall thickening which could be related to cystitis either acute or chronic or neurogenic bladder. Reviewed, dictated and finalized at location A. SPRAYER IMPRESSION: 1. Diarrhea with mild wall thickening throughout the sigmoid colon consistent w ith colitis could be infectious, inflammatory or ischemic in etiology. 2. Patchy lung disease at the bilateral lower lung zones consistent with multif ocal pneumonia. 3. Diffuse hepatic steatosis. 4. Mild diffuse bladder wall thickening which could be related to cystitis eith er acute or chronic or neurogenic bladder.
--- NOTE | ~2021-09-12 | XR_ITS ---
EXAMINATION: XR chest 1V portable DATE: 09/12/2021 11:01 INDICATION: Cough and fever. TECHNIQUE: A single frontal view of the chest was obtained. COMPARISON: Chest 2 views 07/18/2019, CT abdomen and pelvis 06/12/2021 FINDINGS: There are mild airspace opacities in right mid and lower lung zones and left lower lung zon e. No pleural effusion or pneumothorax. The heart size is normal. IMPRESSION: 1. Mild airspace opacities in right mid and lower lung zones and left lower lung zone, consistent wit h atelectasis versus pneumonia. Reviewed, dictated and finalized at location A. RONMENTAL TEST TECHNICIAN IMPRESSION: 1. Mild airspace opacities in right mid and lower lung zones and left lower mark g zone, consistent with atelectasis versus pneumonia.
--- NOTE | ~2021-09-12 | CT_ITS ---
EXAMINATION: CT brain wo con DATE: 09/12/2021 10:46 INDICATION: Dizziness. Confusion. TECHNIQUE: Computed tomography (CT) of the head was performed without intravenous contrast. The mA wa s adjusted according to patient size. Iterative reconstruction technique was employed. The dose-lengt h product was 605.33 mGy-cm. COMPARISON: None FINDINGS: There is no intracranial hemorrhage, acute infarction, or abnormal intracranial mass lesion . The ventricles are normal in size. The orbits are normal. There is mild mucosal thickening in the p aranasal sinuses. The mastoid air cells are normal. IMPRESSION: 1. Normal brain. Reviewed, dictated and finalized at location A. NESS APPLICATIONS ANALYST IMPRESSION: 1. Normal brain.
[2021-09-12 10:17] VITALS: BP 146/87; PULSE 101; RESP 18; TEMP 38.4; O2SAT 95
--- NOTE | 2021-09-12 10:23 | ECG_ITS ---
Measurements Intervals [place] Rate: 100 P: 41 [place]: 130 QRS: 56 QRSD: 86 T: -5 QT: 324 QTc: 418 Interpretive Statements SINUS TACHYCARDIA BORDERLINE T WAVE ABNORMALITY- INF/LAT LEADS BASELINE ARTIFACT- I, II, III, AVR, AVF, V1, V3-V6 BORDERLINE ECG Electronically Signed On 09-12-2021 10:38:05 OPTOMETRY PROFESSOR by Eduard Herrera D.O.
[2021-09-12 10:29] VITALS: PULSE 102
[2021-09-12 10:40] LABS: Basophils Percent Auto 0.3 % (0.2-1.2); Hematocrit 38.3 % (37.0-47.0); Hemoglobin 12.2 g/dL (12.0-15.0); Immature Granulocyte Absolute 0.05 K/mm3 (0.00-0.031); Immature Granulocyte Percent A 0.7 % (0-0.5); Lymphocytes Absolute Auto 1.32 K/mm3 (0.9-3.2); Lymphocytes Percent Auto 19.6 % (18.3-44.2); Mean Corpuscular HGB Conc 31.9 g/dl (32-36); Mean Corpuscular Hemoglobin 28.8 pg (26-34); Mean Corpuscular Volume 90.3 fl (80-100); Mean Platelet Volume 9.7 fl (7.4-10.4); Monocytes Absolute Auto 0.3 K/mm3 (0.1-0.6); Monocytes Percent Auto 3.9 % (2.6-8.5); Neutrophils Absolute Auto 5.1 K/mm3 (1.3-6.7); Neutrophils Percent Auto 75.5 % (45.5-73.1); Platelet Count Result 192 k/mm3 (150-375); Red Blood Count 4.24 M/mm3 (4.2-5.4); White Blood Count 6.7 K/mm3 (4.5-10.0)
--- NOTE | 2021-09-12 10:43 | PC.NURSE ---
called lab to change covid swab to rapid test per dr back
[2021-09-12 10:51] LABS: Base Excess ABG 0.8 mEq/l (+/-2.0); Carboxyhemoglobin 0.4 % THb (0-2.0); Fractional Inspired Oxygen 21 %; HCO3 ABG 24.3 mEq/l (22.0-26.0); Methemoglobin ABG 0.3 %THb (0-1.5); Oxygen Content ABG 16.1 %vol (16.0-22.0); Oxygen Saturation ABG 91.1 % (95.0-100.0); PCO2 ABG 35.2 mmHg (35.0-45.0); PO2 ABG 56.6 mmHg (80.0-100.0); Reduced Hemoglobin 9.3 %THb (0-5.0); Total Hemoglobin 12.7 g/dL (12.0-18.0); pH ABG 7.457 (7.350-7.450)
[2021-09-12 10:52] LABS: Device ROOM AIR; Modified Allen's Test Pass; Site Drawn RIGHT RADIAL
[2021-09-12 10:54] LABS: INR 0.9; Prothrombin Time 11.7 Seconds (11.1-14.7)
[2021-09-12 10:55] LABS: Partial Thromboplastin Time 30.5 SECONDS (22.3-36.8)
[2021-09-12 10:58] LABS: Ethanol < 10 mg/dL (<10); Lactic Acid Reflex 2.3 mmol/L (0.7-2.1)
[2021-09-12 11:10] LABS: Alanine Aminotransferase 30 U/L (4-35); Albumin Level 4.1 g/dL (3.5-5.1); Alkaline Phosphatase 73 U/L (38-126); Anion Gap 10 mmol/L (8-16); Aspartate Amino Transferase 82 U/L (14-36); Bilirubin,Total 0.4 mg/dL (0.2-1.3); Blood Urea Nitrogen 10 mg/dL (7-17); CRP 16.7 mg/dL (<1.0); Calcium 7.9 mg/dL (8.4-10.2); Carbon Dioxide 29 mmol/L (22-30); Chloride 96 mmol/L (98-107); Estimated CRCL calculation 91 ml/min; Estimated Glomerular Filt Rate > 60; Glucose 173 mg/dL (65-110); Lipase 184 U/L (23-300); Magnesium 1.8 mg/dL (1.6-2.3); Sodium 135 mmol/L (137-145); Troponin I < 0.012 ng/mL (0.000-0.034)
[2021-09-12] MEDS: SODIUM CHLORIDE 0.9% IV 1,000 ML 999 ML IV CONT ×2 (11:18→13:15)
[2021-09-12] MEDS: ONDANSETRON INJ 4 MG/2 ML VIAL IV PUSH (11:18)
--- NOTE | 2021-09-12 11:33 | ED.WEAKNESS ---
HPI - Weakness General Chief complaint: Weakness Stated complaint: weakness, cough Time Seen by Provider: 09/12/21 10:10 Source: patient and RN notes reviewed Mode of arrival: ambulatory Limitations: no limitations History of Present Illness HPI Narrative: This is 45 year old female with history of Diabetes mellitus who presents for evaluation of weakness , fever and cough. Patient reports having fever, productive cough for 1 week. She reports cough productive with phlegm and specks of blood. She also reports runny nose congestion and she reports having blood when she blows her nose. She had shortness of breath last week. She also reports diffuse abdominal pain with nausea and vomiting. She has not been tested for covid or the phlegm. She also reports confusion with standing up and weakness. Related Data Home Medications Medication Instructions Recorded Confirmed alogliptin 25 mg PO DAILY 06/01/19 07/13/19 atorvastatin 10 mg PO DAILY 06/01/19 07/13/19 escitalopram oxalate 10 mg PO DAILY 06/01/19 07/13/19 fenofibrate 54 mg PO DAILY 06/01/19 07/13/19 glipizide 10 mg PO BID 06/01/19 07/17/19 lisinopril 40 mg PO DAILY 06/01/19 07/13/19 metformin 1,000 mg PO BID 06/01/19 07/13/19 metoprolol succinate 50 mg PO DAILY 06/01/19 07/13/19 ferrous sulfate 325 mg PO BID 06/21/19 07/13/19 ibuprofen 800 mg PO Q6H 06/21/19 07/13/19 cetirizine 10 mg PO DAILY 07/17/19 07/17/19 estradiol 1 mg PO DAILY 07/17/19 07/17/19 Allergies Allergy/AdvReac Type Severity Reaction Status Date / Time latex Allergy Unknown Rash Verified 09/12/21 10:28 adhesive tape AdvReac Intermediate Itching Verified 09/12/21 10:28 morphine AdvReac Itching Verified 09/12/21 10:28 Review of Systems Review of Systems: All systems reviewed & are unremarkable except as noted in HPI and below PMFSH Past Medical History Medical History Anxiety Arthritis Chronic GERD Fibroids HTN (hypertension) Hypercholesterolemia Obesity Type 2 diabetes mellitus Recent hemoglobin A1c was 11.0. Surgical History Surgical History S/P total abdominal hysterectomy and bilateral salpingo-oophorectomy Complicated by postoperative abdominal wall abscesses requiring drain placement. Family History Family History Father Malignant neoplasm of prostate Hypertension Mother Diabetes mellitus Hypertension Sibling Hypertension Social History Social History Social History: The patient lives alone in [place]. She works at a local [employer]. She has no children. Her primary care provider is Dr. Brad Ortega. She designates her sister Jessee as her emergency contact. She is a full code. Smoking status: Never smoker Alcohol intake: never Substance use: never Gender identity (if verbalized by the patient): Female Spiritual care concerns: No Agree to blood products: Yes Exam Const: General: alert and ill appearing Orientation/consciousness: patient oriented x3 HENMT: Head: normocephalic and atraumatic Face and sinus: face symmetric Mouth: Yes Normal oral and palatal mucosa present, Yes lip normal, Yes oropharynx normal and Yes moist mucous membranes Eyes: Pupils: Equal, round and reactive pupils present EOM: EOMs intact bilaterally Resp: Effort & Inspection: normal respiratory effort and no retractions Auscultation: clear to auscultation bilaterally and diminished lung sounds Cardio: Rate: regular rate Rhythm: regular rhythm Heart sounds: no murmurs GI: GI Palp: Yes Soft to palpation, Yes Tenderness to palpation present (GI) (Diffuse), No Guarding due to palpation present (GI) and No Rigid due to palpation Auscultation: normal bowel sounds Back/Spine/Pelvis: Back: no CVA tenderness Skin: General skin exa
[2021-09-12 12:00] VITALS: BP 116/62; PULSE 98; RESP 18; TEMP 39; O2SAT 97
[2021-09-12 12:26] LABS: Add Urine Microscopic? YES; Appearance Urine Clear (Clear); Bacteria Urine Trace /hpf; Bilirubin Urine Negative (Negative); Blood Urine Negative (Negative); Budding Yeast Urine Present /hpf; Color Urine Yellow (Yellow); Glucose Urine UA 3+ mg/dL (Negative); Ketones Urine Negative (Negative); Leukocyte Esterase Ur 2+ LEU/UL (Negative); Mucus Urine Rare /lpf; Nitrate Urine Negative (Negative); Protein Urine 2+ mg/dL (Negative); RBC Urine 21-50 /hpf (0-2); Squamous Epithelial Cell Urine Many /hpf (Few); Urobilinogen Urine Negative mg/dL (<2.0); WBC Clumps Urine Present /HPF; WBC Urine >75 /hpf
[2021-09-12 12:34] LABS: Specific Grav Ur 1.047 (1.001-1.035)
[2021-09-12 13:38] LABS: Reflex Lactic Acid Yes or No Add Lactic
[2021-09-12 13:54] VITALS: BP 128/70; PULSE 92; RESP 18; TEMP 37.9; O2SAT 97
[2021-09-12 14:13] LABS: Lactic Acid 1.3 mmol/L (0.7-2.1)
--- NOTE | 2021-09-12 14:54 | PC.NURSE ---
this rn called lab about Covid test. lab states that someone other than who i talked to must have taken it and put it on the long run. charge nurse notified
[2021-09-12 16:22] VITALS: BP 138/64; PULSE 87; RESP 20; O2SAT 94
[2021-09-12 17:14] LABS: SARS-CoV-2 RNA PCR Positive
== END 2021-09-12 16:24 | disposition home or self-care (01) ==
PROVIDERS: Emergency Provider General Practice; PCP Family Medicine
DX: U07.1 COVID-19 (principal); J12.82 Pneumonia due to coronavirus disease 2019; N30.90 Cystitis, unspecified without hematuria; E86.0 Dehydration; E11.9 Type 2 diabetes mellitus without complications; I10 Essential (primary) hypertension; E78.00 Pure hypercholesterolemia, unspecified; K21.9 Gastro-esophageal reflux disease without esophagitis; M19.90 Unspecified osteoarthritis, unspecified site; F41.9 Anxiety disorder, unspecified; Z79.84 Long term (current) use of oral hypoglycemic drugs; R00.0 Tachycardia, unspecified; R94.31 Abnormal electrocardiogram [ECG] [EKG]; K76.0 Fatty (change of) liver, not elsewhere classified
CPT/HCPCS: 36415; 36600; 70450; 71045; 71275; 74176; 80053; 80307; 81001; 82375; 82805; 83050; 83605; 83690; 83735; 84484; 85025; 85610; 85730; 86140; 87040; 87086; 87088; 87804; 93005; 96361; 96365; 96367; 96375; 99285; C9803; J0131; J0456; J0696; J2405; J7030; Q9967; U0003; U0005